=== PATIENT | female | born 1950 | race Caucasian/White ===

== ENCOUNTER 2023-10-27 01:30 | Inpatient (IN) | payer OTHER, SELFPAY ==
[2023-10-26 20:15] VITALS: BP 136/90
[2023-10-26 20:32] LABS: % Basophils 0.5 % (0-2); % Eosinophils 2.4 % (0-6); % Immature Granulocytes 0.7 % (0-0.5); % Lymphocytes 9.9 % (20.5-51.1); % Monocytes 9.8 % (1.7-9.3); % Neutrophils 76.7 % (42.2-75.2); Absolute Basophils 0.1 10^3/uL (0-0.2); Absolute Eosinophils 0.4 10^3/uL (0-0.7); Absolute Immature Granulocytes 0.1 10^3/uL (0-0.05); Absolute Lymphocytes 1.6 10^3/uL (1.2-3.4); Absolute Monocytes 1.6 10^3/uL (0.1-0.6); Absolute Neutrophils 12.2 10^3/uL (1.4-6.5); Hematocrit 34.6 % (37.0-47.0); Hemoglobin 11.9 g/dL (12.0-16.0); Mean Corp Hgb Conc. 34.4 g/dL (33.0-37.0); Mean Corpuscular Hgb 30.3 pg (27.0-31.0); Mean Platelet Volume 9.9 fL (7.4-10.4); Nucleated Red Blood Cells % 0 %; Platelet Count 379 10^3/uL (130-400); Red Blood Cell Count 3.93 10^6/uL (4.20-5.40); Red Cell Dist. Width 14.6 % (11.5-14.5)
[2023-10-26 20:51] LABS: ALT (SGPT) 44 U/L (0-35); AST (SGOT) 37 U/L (14-36); Albumin 3.8 g/dl (3.5-5.0); Alkaline Phosphatase 69 U/L (38-126); Blood Urea Nitrogen 19 mg/dl (7-17); Calcium 9.4 mg/dl (8.4-10.2); Carbon Dioxide 19 mmol/L (22-30); Chloride 104 mmol/L (98-107); Glucose 243 mg/dl (70-99); Potassium 4.2 mmol/L (3.5-5.1); Sodium 135 mmol/L (135-145); Total Bilirubin 0.6 mg/dl (0.2-1.3); Total Protein 6.4 g/dl (6.3-8.2); eGFR > 60.00
[2023-10-26 21:25] VITALS: BP 151/62
[2023-10-26 21:53] LABS: COVID-19 Antigen Negative (Negative)
[2023-10-26 22:00] VITALS: BP 128/63
--- NOTE | 2023-10-26 22:26 | ED.GENMED ---
History of Present Illness
General
Chief Complaint: Cold/Flu/URI Symptoms
Source: patient and spouse
Exam Limitations: none
Time Seen by Provider: 10/26/23 21:27
Nursing documentation reviewed up to this point in time: agreed with
Travel History
Have you had any contact with someone who has COVID-19?: No
Do you have any symptoms of coronavirus? Fever > 100 degrees, chills, cough, shortness of breath, sore throat, loss of taste or smell, muscle aches, or headache?: No
History of Present Illness
History of Present Illness:
Patient with history of lymphoma, currently receiving treatment and [facility], presents ED secondary to chronic cough, which has worsened recently, along with diarrhea over the past 1 week. Today, patient had fever over
the 101, for which she has taken Tylenol, on approxi-1 hour prior to arrival. In addition, patient reports 'not feeling well'. Denies nausea or vomiting. Denies loss of appetite. Denies abdominal pain. Patient's grandchildren recently had viral
illness. Denies headache. Denies dizziness. Denies rash.
Past History
Past History
ED Past Medical History: Cancer (Non-Hodgkin's lymphoma 15 years ago), HTN, Hypercholesterolemia, IDDM and Other (COVID-02 June 2021)
ED Past Surgical History: Gynecological, Orthopedic and Other (Splenectomy)
Social History
Tobacco: Non-smoker
Alcohol: None
Drug: None
Personal:
Living: with family
Employment: Retired
Family History
Family History: CAD
Review of Systems
Review of Systems
Allergies reviewed?: Yes
All Other Systems: ROS reviewed and negative except as documented in HPI and ROS
Constitutional: Denies fever, fatigue or chills
EENT: Reports no symptoms
Respiratory: Reports cough
Cardiac: Reports no symptoms
ABD/GI: Reports diarrhea; Denies abdominal pain, nausea or vomiting
Musculoskeletal: Reports no symptoms
Skin: Reports no symptoms
Neurological: Reports no symptoms
Phy Exam
Physical Exam
Physical Exam:
Physical Exam
General: mild distress, not acutely ill. afebrile
Head: nc/at. eomi
Neck: supple. no meningeal signs
Heart: s1/s2 regular rate and rhythm, no murmur. equal radial pulses.
Lungs: no acute respiratory distress. clear bilaterally
Abdomen: normal bowel sounds. not tender.
Neuro: alert and oriented. no focal neurological deficits
Skin: no rash
Psychiatric: well kept. interactive and cooperative
Extremities: no edema. no calf tenderness.
Course
Orders/Labs/Results
Orders:
Orders
10/26/23 20:25
B-Hydroxybutyrate Urgent
Comment: ADD ON
CMP [Comprehensive Metabolic Panel] Urgent
Complete Blood Count/With Diff Urgent
10/26/23 21:29
CR Chest - 2 Views Urgent
Comment:
Reason For Exam: fever/cough
10/26/23 21:34
COVID-19 Antigen Urgent
Source: Nasal Swab
Influenza A+B Rapid Molecular Urgent
MARCELINA Source: Nasal Swab
Specimen Description:
10/26/23 22:11
Add On- LAB Urgent
Tests Added?: Beta-hydroxybutyrate
10/26/23 22:24
0.9% Sodium Chloride 500 ml [Nss] 500 ml IV BOLUS
10/26/23 22:27
Stool Culture Urgent
MARCELINA Source: Feces/Stool
Specimen Description:
Date Specimen was Collected: 10/27/23
Time Specimen was Collected: 10:04
10/26/23 22:29
CT Chest W/o Iv Contrast Urgent
Comment:
Reason For Exam: cough/hypoxia
10/26/23 22:30
Venous Blood Gas Urgent
%Oxygen/Room Air: 95
10/26/23 22:56
Lactic Acid Q4H
Comment: CANCEL 2nd LACTIC ACID IF 1st LACTIC ACID IS LESS THAN 2
Urinalysis Reflex To Culture Urgent
Date Specimen was Collected: 10/26/23
Time Specimen was Collected: 22:54
Urine Microscopic Reflex Cult Urgent
Blood Culture Q30M
MARCELINA Source: Blood/Venous
Specimen Description:
Blood Culture Q30M
MARCELINA Source: Blood/Venous
Specimen Description:
Urine Culture Urgent
MARCELINA Source: U
Specimen Description:
Date Specimen was Collected: 10/26/23
Time Specimen was Collected: 22:54
10/27/23 00:17
Piperacillin/Tazo 3.375 Gram [Zosyn] 3.375 gram in 50 ml IV NOW
Vancomycin 1 Gram/200 ml [Vancocin] 1 gram in 200 ml IV NOW
10/27/23 01:07
Admit/Transfer Patient As Directed
Co-Sign Provider:
Level of Care: Inpatient admission
Assign to:: Medical/Surgical
Physician / Group: Sven Mccoy rudy
Diagnosis: aspiration pneumonia, hypoxia
Reason for Hospitalization: aspiration pneumonia, hypoxia - IVF and IV abx, speech eval
Expected length of stay greater than two midnights?: Yes
ELOS- Estimated Length of Stay in days: 3
I certify the patient meets the requirements for IP care: Yes
10/27/23 01:11
Code Status As Directed
Resuscitation Status: Full Code
10/27/23 02:23
0.9% Sodium Chloride 1000 ml [Nss] 1,000 ml IV 80 mls/hr
Acetaminophen [Tylenol] 650 mg PO Q4HPRN PRN
Bisacodyl [Dulcolax] 10 mg RECTAL Q75GSHP PRN
Dextrose 50%-Water [Dextrose 50% Syringe] 12.5 grams IV [id number] PRN
Docusate W/Senna [Senokot-S] 1 tablet PO BIDPRN PRN
Glucagon [GlucaGen] 1 mg IM PRN PRN
Ipratropium/Albuterol Sulfate [Duoneb] 3 ml INH R Q4HPRN PRN
Ondansetron Injectable [Zofran] 4 mg IV Q6HPRN PRN
Polyethylene Glycol Powder [Miralax] 17 grams PO DAILYPRN PRN
10/27/23 02:23
Respiratory Culture/Gram Stain Routine
MARCELINA Source: Sputum
Specimen Description:
Activity As Directed
Activity Level: As Tolerated
Bedside Glucose Monitoring As Directed
Frequency: AC&HS
Additional Instructions:: Change to q6h if pt on TPN, tube feeding or not eating
Vital Signs As Directed
Frequency: Per unit guidelines
Acapella [Rx Pep / Acapela] [RESP] Routine
Rx Incentive Spirometry [RESP] Routine
Frequency: q1h while awake
Ot Eval And Treat Routine
Pt Eval And Treat Routine
Activity Level: As Tolerated
Speech Therapy Eval & Treat Routine
DX Deep Vein Thrombosis Video Routine
10/27/23 03:00
Insulin Glargine Lantus [Lantus] 40 units Subcutaneous Insulin Syringe [Syringe-Insulin] 0 unit SC ONCE
10/27/23 05:58
Complete Blood Count/With Diff IN AM
Comprehensive Metabolic Panel IN AM
Glycohemoglobin (HgbA1c) IN AM
10/27/23 Breakfast
1800 calorie (15 carb) Diabetic
At Your Request: Limited Participation
Piperacillin/Tazo 3.375 Gram [Zosyn] 3.375 gram in 50 ml IV Q6H
10/27/23 07:30
Insulin Aspart Corrective Low [Novolog Flexpen-Low Resistance] See Protocol SC AC
Insulin Aspart Pen [Novolog Flexpen] 10 units SC AC
10/27/23 08:00
Guaifenesin [Mucinex] 1,200 mg PO Q12
Lisinopril [Zestril] 10 mg PO DAILY
Polymyxin B/Trimethoprim [Polytrim Ophthalmic Solution] See Dose Instructions OPHTH QID
10/27/23 18:00
Enoxaparin Sodium [Lovenox] 40 mg SC QPM
Abnormal Lab Results
10/26/23 10/26/23 10/26/23
20:25 22:30 22:56
WBC 16.0 H 10^3/uL
(4.8-10.8)
RBC 3.93 L 10^6/uL
(4.20-5.40)
Hgb 11.9 L g/dL
(12.0-16.0)
Hct 34.6 L %
(37.0-47.0)
RDW 14.6 H %
(11.5-14.5)
Abs Immat Gran (auto) 0.1 H 10^3/uL
(0-0.05)
Absolute Neuts (auto) 12.2 H 10^3/uL
(1.4-6.5)
Absolute Monos (auto) 1.6 H 10^3/uL
(0.1-0.6)
Immature Gran % 0.7 H %
(0-0.5)
Neutrophils % 76.7 H %
(42.2-75.2)
Lymphocytes % 9.9 L %
(20.5-51.1)
Monocytes % 9.8 H %
(1.7-9.3)
VBG pCO2 34 L mmHg
(35-48)
VBG pO2 105 H mmHg
(30-50)
Carbon Dioxide 19 L mmol/L
(22-30)
BUN 19 H mg/dl
(7-17)
Glucose 243 H mg/dl
(70-99)
AST 37 H U/L
(14-36)
ALT 44 H U/L
(0-35)
Leukocyte Esterase Rfl 1+ A
(Negative)
Urine Bacteria (Reflex) Few A
(Negative)
10/26/23 20:25
10/26/23 20:25
Vital Signs
Initial and Last Documented VS:
Initial Vital Signs
Temp Pulse Resp BP Pulse Ox
99 F 104 26 136/90 97
10/26/23 20:15 10/26/23 20:15 10/26/23 20:15 10/26/23 20:15 10/26/23 20:15
Last Documented Vital Signs
Temp Pulse Resp BP Pulse Ox
98.3 F 86 17 123/58 94
10/27/23 07:00 10/27/23 07:38 10/27/23 07:00 10/27/23 07:38 10/27/23 09:37
MDM/Problems Addressed
MDM/Problems Addressed:
CXR : no acute findings. However, secondary to hypoxia (90% on RA) along with worsening cough/fever, decision made to CT chest to evaluate for an occult pneumonia.
CT chest report reviewed - likely infection under aspiration. In light of patient's immunocompromised state along with sig. leukocytosis and mild hypoxia, will admit for further evaluation and treatment, including iv abx and IVF.
Blood cx pending.
*Critical Care Note
Total Time (30-74mins, 75-104mins- exclusive of procedures): Not Applicable
ED Attending Note
-
Portions of this chart may have been created with voice recognition software.� Occasional wrong word or��sound alike� substitutions may have occurred due to the inherent limitations of voice recognition software.
Discharge Plan
Departure
Patient Disposition: Admit
Date of Disposition: 10/27/23
Time of Disposition: 00:17
Admit to: Telemetry
Presentation/result/management discussed w/ accepting MD/DO: Hospitalist
Discharge Problem:
Aspiration pneumonia
Interventions
Interventions:
*Risk Screen - Suicide Last Done: 10/26/23 20:15
*General Assessment Last Done: 10/26/23 21:36
*Neglect/Abuse Screening Last Done: 10/26/23 20:15
ED- Fall Risk Assessment Last Done: 10/26/23 21:36
*ED COVID-19 Vaccine History Last Done: 10/27/23 01:46
*Nursing Disposition Last Done: 10/27/23 02:07
ED- Pulmonary Assessment Last Done: 10/26/23 21:36
Discharge Date and Time
Discharge Date/Time: 10/27/23 02:08
[2023-10-26 22:50] LABS: B-Hydroxybutyrate 0.08 mmol/L (0.02-0.27)
[2023-10-26] MEDS: NSS 500 IV (22:51)
[2023-10-26 23:00] VITALS: BP 126/59
[2023-10-26 23:07] LABS: Urine Albumin Negative (Neg - Trace); Urine Bilirubin Negative (Negative); Urine Character Clear (Clear); Urine Color Yellow; Urine Glucose Negative (Negative); Urine Ketone Negative (Negative); Urine Leukocyte 1+ (Negative); Urine Nitrite Negative (Negative); Urine Occult Blood Negative (Negative); Urine Urobilinogen 1+ (Neg - 1+)
[2023-10-26 23:18] LABS: Venous Blood Gas B.E. -1.8 mmol/L (-4 to +4); Venous Blood Gas HCO3 22.1 mmol/L (22-27); Venous Blood Gas O2 Sat % 98.4 %; Venous Blood Gas pCO2 34 mmHg (35-48); Venous Blood Gas pH 7.42 (7.32-7.43); Venous Blood Gas pO2 105 mmHg (30-50)
[2023-10-26 23:20] LABS: Urine Bacteria Few (Negative); Urine Red Blood Cell 0-2 /HPF (0-2)
[2023-10-27] VITALS (7 sets, daily range): BP systolic 110–128; BP diastolic 47–63; O2SAT 99; BMI 31.2
[2023-10-27] MEDS: ZOSYN 50 IV ×2 (00:22→05:20)
--- NOTE | 2023-10-27 00:43 | HPS.HSE ---
Family Physician
-
Family Physician: Warner Oliveros
Chief Complaint
-
acute on chronic cough, weakness, fever
History of Present Illness
73 y/o F hx of Lymphoma on Rituxan, splenectomy, GERD, IDDM, HTN presents to ER with acute on chronic cough. Patient reports chronic cough due to post-nasal drip. She reports in past 1 week, there is a productive cough with yellow-green sputum. She
also feels short of breath. Denies CP. She does note a fever today of 101. Last week, she had a viral GI bug which has mostly resolved. No acute GI complaints at this time.
She also complains of R eye redness and reports prior history of R eye infections treated with antibiotic eye drops.
In ER, CT imaging reveals pneumonia and patient is hypoxia, placed on 2L And admitted.
Medical History
Past Medical History
Past Medical History: Reports Other (hx of Lymphoma on Rituxan, splenectomy, GERD, IDDM, HTN )
Past Surgical History: Reports Orthopedic and Other (spleen removal)
Social History
Tobacco: Non-smoker
Alcohol: None
Drug: None
Personal:
Living: With Family
Employment: Retired
Family History
Family History: Not pertinent
Allergies / Home Medications
Allergies reflects when Allergies were last updated in [facility].
Home Medications with original date entered in [facility]
Allergy/Medication List:
Allergies
Allergy/AdvReac Type Severity Reaction Status Date / Time
ciprofloxacin [From Cipro] Allergy Rash Verified 10/26/23 20:19
ciprofloxacin HCl Allergy Rash Verified 10/26/23 20:19
[From Cipro]
Home Medications
cholecalciferol (vitamin D3) 50 mcg (2,000 unit) tablet 2,000 units PO DAILY Supplement 06/25/21
insulin aspart U-100 100 unit/mL (3 mL) subcutaneous pen (Novolog FlexPen U-100 Insulin aspart) 14 units SC AC Diabetes 06/25/21
insulin degludec 200 unit/mL (3 mL) subcutaneous pen (Tresiba FlexTouch U-200 insulin) 68 unit SQ HS Diabetes 06/25/21
lisinopril 10 mg tablet 10 mg PO DAILY Heart disease/condition 06/25/21
simvastatin 20 mg tablet 10 mg PO QPM High cholesterol 06/25/21
cyclobenzaprine 10 mg tablet 10 mg PO TIDPRN PRN muscle spasm #20 tabs 05/24/22
diclofenac sodium 75 mg tablet,delayed release 75 mg PO BID PRN pain #30 tabs 05/24/22
ondansetron 4 mg disintegrating tablet 4 mg PO QID PRN nausea and vomiting #20 tabs 05/24/22
prednisone 20 mg tablet 40 mg (2 x 20 mg) PO DAILY #8 tabs 10/15/22
Not verified at this time
Review of Systems
-
A 12 point ROS was completed and negative except as noted: Yes
Physical Exam
Vital Signs
Vital Signs
Temp Pulse Resp BP Pulse Ox
99 F 87 17 124/49 97
10/26/23 20:15 10/27/23 00:30 10/27/23 00:30 10/27/23 00:00 10/27/23 00:30
Physical Exam
General: No Apparent Distress
HEENT: NormoCephalic, Anicteric and Other (R eye redness, tearing)
Respiratory: Rhonchi
Cardiac: S1/S2 and Regular Rhythm
GI: No Non Distended
Neuro: AO x 3
Hematologic/Lymphatic: No Lymphadenopathy
Psych: Calm
Laboratory Results
-
10/26/23 20:25
10/26/23 20:25
Laboratory Results
Lactic Acid 1.0 mmol/L (0.7-2.0) 10/26/23 22:56
Total Bilirubin 0.6 mg/dl (0.2-1.3) 10/26/23 20:25
AST 37 U/L (14-36) H 10/26/23 20:25
ALT 44 U/L (0-35) H 10/26/23 20:25
Alkaline Phosphatase 69 U/L (38-126) 10/26/23 20:25
Data Reviewed
-
Diagnostic Radiology: Report Reviewed by me
Lab Data: Labs Reviewed by me
Impression/Plan
-
Assessment:
Acute hypoxic respiratory insufficiency
Suspected aspiration PNA
- CT: with RML and LLL nodularity concerning for pneumonia (aspiration) per night radiologist read. f/u formal report
- wean O2 as able
- start empiric Vanco/Zosyn and follow cultures
- mucolytics, supportive care, IS/Acapella, prn nebs etc
- speech eval
- immunocompromised patient in setting of lymphoma and therapy
R eye infection
- start Bacitracin/polymyxin eye drops
IDDM
- check A1c
- SSI
- diabetic diet
- continue Tresiba and Novolog - reduce doses of 40u and 10u respectively until med list clarified
Essential HTN
- continue MAMIE
Non-hodgkin lymphoma on Rituxan
- followed by [facility] (Dr. Inocente Tee)
DVT ppx: Lovenox
Code: Full
[2023-10-27] MEDS: VANCOCIN 200 IV ×2 (01:08→03:43)
--- NOTE | 2023-10-27 02:41 | VATNOTE ---
Paged by PCN, patient just arrived to floor and may have a vanco infiltrate. Patient with mild pain, redness, and swelling (less then 1 inch) to right AC. IV discontinued, warm compress applied and new IV started in left arm. PCN at bedside.
[2023-10-27] MEDS: NSS 1000 IV (02:50)
[2023-10-27 03:04] LABS: Glucose - Point of Care 222 mg/dl (70-99)
--- NOTE | 2023-10-27 03:13 | W.PN.UPDATE ---
Update Note
Progress Note Update
0300 pt ordered 40unit lantus. Pt refuses 40 units--only wants 30units. Told nurse ' she'll drop to low.' BG 222/
[2023-10-27] MEDS: ROBITUSSIN 200 MG PO (03:43)
--- NOTE | 2023-10-27 05:13 | PTCARENOTE ---
pt is aaox3, on 2L o2=97%. pt has a harsh, dry cough. pt TvabNnprh=410; pt was ordered 40 units. attempted to give w/ snack- however pt refused saying she wants 30 units and a snack because she doesn't want to drop'. informed COMMUNITY AIDE Ani Ge- who
provided new order. attempted to give pt her lantus 30units w/ snack however she refused stating its too late now.
pt arrived to floor w/ red, itchy, race edema to INT that had infiltrated - warm compress applied and new site obtain by VAT.
pt had red, crusty, trace edema to right eye - warm compress applied. pt has ordered eye drops.
pt is oriented to room w/ call paredes in reach
[2023-10-27 06:13] LABS: % Basophils 0.6 % (0-2); % Eosinophils 3.5 % (0-6); % Immature Granulocytes 0.9 % (0-0.5); % Lymphocytes 10.1 % (20.5-51.1); % Monocytes 12.7 % (1.7-9.3); % Neutrophils 72.2 % (42.2-75.2); Absolute Basophils 0.1 10^3/uL (0-0.2); Absolute Eosinophils 0.5 10^3/uL (0-0.7); Absolute Immature Granulocytes 0.1 10^3/uL (0-0.05); Absolute Lymphocytes 1.4 10^3/uL (1.2-3.4); Absolute Monocytes 1.8 10^3/uL (0.1-0.6); Hematocrit 31.3 % (37.0-47.0); Hemoglobin 10.7 g/dL (12.0-16.0); Mean Corp Hgb Conc. 34.2 g/dL (33.0-37.0); Mean Corpuscular Hgb 29.8 pg (27.0-31.0); Mean Corpuscular Volume 87.2 fL (81.0-99.0); Nucleated Red Blood Cells % 0 %; Platelet Count 338 10^3/uL (130-400); Red Blood Cell Count 3.59 10^6/uL (4.20-5.40); Red Cell Dist. Width 14.6 % (11.5-14.5); White Blood Cell Count 13.9 10^3/uL (4.8-10.8)
[2023-10-27 06:39] LABS: ALT (SGPT) 39 U/L (0-35); AST (SGOT) 26 U/L (14-36); Alkaline Phosphatase 68 U/L (38-126); Blood Urea Nitrogen 15 mg/dl (7-17); Calcium 8.8 mg/dl (8.4-10.2); Carbon Dioxide 20 mmol/L (22-30); Chloride 108 mmol/L (98-107); Estimated Creatinine Clearance 75 ml/min; Glucose 243 mg/dl (70-99); Potassium 4.1 mmol/L (3.5-5.1); Sodium 137 mmol/L (135-145); Total Bilirubin 0.7 mg/dl (0.2-1.3); Total Protein 5.4 g/dl (6.3-8.2); eGFR > 60.00
[2023-10-27 07:28] LABS: Glucose - Point of Care 231 mg/dl (70-99)
[2023-10-27] MEDS: NOVOLOG FLEXPEN 10 UNITS SC ×3 (07:37→17:05)
[2023-10-27] MEDS: NOVOLOG FLEXPEN-LOW RESISTANCE 2 UNITS SC (07:38)
[2023-10-27] MEDS: ZESTRIL 10 MG PO (07:38)
[2023-10-27] MEDS: MUCINEX 1200 MG PO ×2 (07:39→19:45)
[2023-10-27] MEDS: POLYTRIM OPHTHALMIC SOLUTION 1 DROP OPHTH ×4 (07:39→21:56)
--- NOTE | 2023-10-27 07:59 | PHA.VAN.IN ---
Assessment
- Assessment
Renal Function: Appears similar to baseline
Concomitant Antimicrobials: piperacillin/tazobactam
AUC Dosing Plan
- Dosing Variables
Dosing Weight (kg): 82
Dosing CrCl (ml/min): 75
Vd coefficient (L/kg): 0.7
- Empiric Dosing
Initial / Loading Dose: 2000mg - 14 (1g 01:08 PLUS 1g 03:43)
Maintenance Regimen: Vanc 750mg Q12H starting at 1800
Estimated AUC (mcg*h/mL): 405
Estimated Peak (mcg*h/mL): 23.7
Estimated Trough (mcg/ml): 11.4
Estimated Half Life (H): 10.4
- Monitoring
No levels ordered at this time: consider levels in next few days
MRSA Screen: Ordered per protocol
Pharmacokinetics Vancomycin I
- -
Patient Age: 73
Patient Sex: Female
Vancomycin Day #: 1
Indication: Pulmonary/Respiratory
Requesting Provider: Dr. Mccoy
Pertinent Antimicrobial Allergies:
ciprofloxacin - rash
Height / Weight:
Height 5 ft 4 in
Actual Weight 82.327 kg
Pertinent Past Medical History: BMI ~31
- Vital Signs / Lab Results
Temp Pulse Resp BP Pulse Ox
98.3 F 86 17 123/58 94
10/27/23 07:00 10/27/23 07:38 10/27/23 07:00 10/27/23 07:38 10/27/23 07:00
Lab Results - Hematology
10/26/23 10/27/23
20:25 05:58
WBC 16.0 H 13.9 H
Lab Results - Chemistry
10/26/23 10/27/23
20:25 05:58
BUN 19 H 15
Creatinine 0.8 0.7
Estimated Creat Clear 75
Albumin 3.8 3.0 L
10/26/23
22:56
Lactic Acid 1.0
Lab Results - Urine
10/26/23
22:56
Urine Nitrite (Reflex) Negative
Leukocyte Esterase Rfl 1+ A
Urine WBC (Reflex) 6-10
Ur Squamous Epith Cells 6-10
Urine Bacteria (Reflex) Few A
Microbiology Results
10/26/23 21:34 Influenza Types A & B (JONATAN) - Final
Nasal Swab Negative for Influenza A & B, NAAT
Negative results must be combined with clinical observations
and patient history.
Nucleic Acid Amplification test (NAAT)performed on the
[employer] platform.
--- NOTE | 2023-10-27 08:52 | PTOTSP ---
Dysphagia Evaluation
Oral and pharyngeal stages of swallowing suspected to be WFL. No signs of aspiration observed. Patient c/o new onset of reflux.
Recommend:
1. Regular, Thin Liquids
2. General aspiration and reflux precautions
3. Medications as best tolerated
4. Consider GI consult for report of reflux
No further dysphagia therapy warranted. Please reconsult as appropriate.
[2023-10-27 09:22] LABS: Glycohemoglobin (HgbA1c) 9.1 % (4.0-5.6)
[2023-10-27] MEDS: TESSALON PERLES 200 MG PO ×3 (10:17→19:45)
[2023-10-27] MEDS: TYLENOL 650 MG PO ×2 (10:17→21:59)
--- NOTE | 2023-10-27 10:29 | W.PN.HOSP.TC ---
Addendum entered and electronically signed by Sara Love MD 10/27/23 10:51:
briefly discussed abx plan with ID recommend Cef/Azithro
updated patient
Original Note:
Today's Communication/Plan
-
F/U cultures
Vanc/Zosyn/Azithro for now given hx immunosuppresion
stop vanc if MRSA swab negative
Assessment / Plan
Assessment / Plan
CT CHEST
IMPRESSION:
1. Airspace consolidation within the left lower lobe, likely representing pneumonia, subsegmental atelectasis, and/or aspiration. Cluster of centrilobular nodules within the right middle lobe, also likely infectious or inflammatory.
2. Moderate hiatal hernia without evidence of incarceration.
3. Diffusely mottled appearance of the thoracic spine and sternum, unchanged compared to prior CT dated 06/25/2021. Finding is nonspecific, and may be related to osteopenia or infiltrative process such as myeloma.
Acute hypoxic respiratory insufficiency
- CT results above - LLL PNA
- immunocompromised patient in setting of lymphoma and therapy; hx splenectomy
-speech eval appreciated - regular diet
- start empiric Vanco/Zosyn and follow cultures (dc Vanc if MRSA swab negative)
-add on atypical coverage with Azithromycin
-[place] Ag
- mucolytics, supportive care, IS/Acapella, prn nebs etc
- speech eval
R eye infection
- start Bacitracin/polymyxin eye drops
IDDM
- check A1c
- SSI
- diabetic diet
- continue Tresiba and Novolog - reduce doses
Essential HTN
- continue MAMIE
Non-hodgkin lymphoma on Rituxan
- followed by [facility] (Dr. Inocente Tee)
DVT ppx: Lovenox
Code: Full
Anticipated Discharge: 24 - 48 hours
Subjective/Interval History
-
Date of Service: October 27, 2023
Objective Data
-
Labs:
Laboratory Results
10/27/23
05:58
WBC 13.9 H
Hgb 10.7 L
Hct 31.3 L
Plt Count 338
Sodium 137
Potassium 4.1
Chloride 108 H
Carbon Dioxide 20 L
BUN 15
Creatinine 0.7
Glucose 243 H
Calcium 8.8
Total Bilirubin 0.7
AST 26
ALT 39 H
Alkaline Phosphatase 68
Vital Signs:
Vital Signs
Temp Pulse Resp BP Pulse Ox
98.3 F 86 17 123/58 94
10/27/23 07:00 10/27/23 07:38 10/27/23 07:00 10/27/23 07:38 10/27/23 09:37
I&O
10/26/23 10/27/23 10/28/23
06:59 06:59 06:59
Intake Total 700 / 700
Balance 700 / 700
[2023-10-27 11:40] LABS: Glucose - Point of Care 229 mg/dl (70-99)
[2023-10-27] MEDS: NOVOLOG FLEXPEN-LOW RESISTANCE 12 UNITS SC (12:00)
[2023-10-27] MEDS: ROCEPHIN 2000 MG IV (12:01)
[2023-10-27] MEDS: STERILE WATER FOR INJECTION 20 ML IV (12:01)
[2023-10-27] MEDS: ZITHROMAX 500 MG PO (12:01)
[2023-10-27 16:30] LABS: Glucose - Point of Care 192 mg/dl (70-99)
[2023-10-27] MEDS: NOVOLOG FLEXPEN-LOW RESISTANCE 1 UNITS SC (17:05)
[2023-10-27] MEDS: LOVENOX 40 MG SC (17:06)
[2023-10-27 21:33] LABS: Glucose - Point of Care 209 mg/dl (70-99)
[2023-10-27] MEDS: LANTUS 0.299999999999999989 UNITS SC (21:55)
--- NOTE | 2023-10-28 03:12 | DOWNTIME ---
There was a [employer] Downtime on 10/27/2023 from 0100 to 10/28/2023 at 0300. Downtime documentation of patient's care, including medication administrations, has been reconciled in the electronic record per guidelines. Refer to the
patient's paper chart under the miscellaneous tab to see printed paper medication records and downtime forms.
[2023-10-28 06:52] LABS: % Basophils 0.8 % (0-2); % Eosinophils 6.6 % (0-6); % Immature Granulocytes 0.8 % (0-0.5); % Lymphocytes 14.7 % (20.5-51.1); % Monocytes 12.7 % (1.7-9.3); % Neutrophils 64.4 % (42.2-75.2); Absolute Basophils 0.1 10^3/uL (0-0.2); Absolute Eosinophils 0.7 10^3/uL (0-0.7); Absolute Immature Granulocytes 0.1 10^3/uL (0-0.05); Absolute Lymphocytes 1.6 10^3/uL (1.2-3.4); Absolute Monocytes 1.4 10^3/uL (0.1-0.6); Absolute Neutrophils 6.8 10^3/uL (1.4-6.5); Hematocrit 34.1 % (37.0-47.0); Hemoglobin 11.5 g/dL (12.0-16.0); Mean Corp Hgb Conc. 33.7 g/dL (33.0-37.0); Mean Corpuscular Hgb 30.1 pg (27.0-31.0); Mean Corpuscular Volume 89.3 fL (81.0-99.0); Mean Platelet Volume 10.3 fL (7.4-10.4); Nucleated Red Blood Cells % 0 %; Platelet Count 383 10^3/uL (130-400); Red Blood Cell Count 3.82 10^6/uL (4.20-5.40); Red Cell Dist. Width 14.6 % (11.5-14.5); White Blood Cell Count 10.6 10^3/uL (4.8-10.8)
[2023-10-28 07:00] VITALS: BP 141/66
[2023-10-28 07:17] LABS: Glucose - Point of Care 202 mg/dl (70-99)
[2023-10-28 07:32] LABS: Blood Urea Nitrogen 15 mg/dl (7-17); Calcium 9.4 mg/dl (8.4-10.2); Carbon Dioxide 23 mmol/L (22-30); Chloride 108 mmol/L (98-107); Estimated Creatinine Clearance 66 ml/min; Glucose 186 mg/dl (70-99); Magnesium 1.8 mg/dl (1.6-2.3); Potassium 4.4 mmol/L (3.5-5.1); Sodium 138 mmol/L (135-145); eGFR > 60.00
[2023-10-28] MEDS: NOVOLOG FLEXPEN 10 UNITS SC (08:21)
[2023-10-28] MEDS: NOVOLOG FLEXPEN-LOW RESISTANCE 2 UNITS SC (08:22)
[2023-10-28] MEDS: ZESTRIL 10 MG PO (08:24)
[2023-10-28] MEDS: ZITHROMAX 500 MG PO (08:24)
[2023-10-28] MEDS: POLYTRIM OPHTHALMIC SOLUTION 2 DROP OPHTH ×2 (08:24→12:13)
[2023-10-28] MEDS: MUCINEX 1200 MG PO (08:24)
[2023-10-28 11:00] VITALS: BP 116/58
--- NOTE | 2023-10-28 11:21 | W.PN.HOSP.TC ---
Addendum entered and electronically signed by Sara Love MD 10/29/23 14:14:
sepsis 2/2 pneumonia
-resolved
Original Note:
Today's Communication/Plan
-
Ok for DC home today
Assessment / Plan
Assessment / Plan
CT CHEST
IMPRESSION:
1. Airspace consolidation within the left lower lobe, likely representing pneumonia, subsegmental atelectasis, and/or aspiration. Cluster of centrilobular nodules within the right middle lobe, also likely infectious or inflammatory.
2. Moderate hiatal hernia without evidence of incarceration.
3. Diffusely mottled appearance of the thoracic spine and sternum, unchanged compared to prior CT dated 06/25/2021. Finding is nonspecific, and may be related to osteopenia or infiltrative process such as myeloma.
Acute hypoxic respiratory insufficiency
- CT results above - LLL PNA
- immunocompromised patient in setting of lymphoma and therapy; hx splenectomy
-speech eval appreciated - regular diet
-abx narrowed to cef/azithro on 10/26. Leukocytosis resolved, patient feeling better. Will DC to complete 3 days Azithro; 7 days Cephalosporin course
-patient feels ready for DC home today
R eye infection
- start Bacitracin/polymyxin eye drops
IDDM
- check A1c
- SSI
- diabetic diet
- continue Tresiba and Novolog - reduce doses
Essential HTN
- continue MAMIE
Non-hodgkin lymphoma on Rituxan
- followed by [facility] (Dr. Inocente Tee)
DVT ppx: Lovenox
Code: Full
Anticipated Discharge: Today
Subjective/Interval History
-
Date of Service: October 28, 2023
feeling much better today and wants to go home
no chest pain or shortness of breath
no nausea/vomiting
Objective Data
-
Labs:
Laboratory Results
10/28/23
06:29
WBC 10.6
Hgb 11.5 L
Hct 34.1 L
Plt Count 383
Sodium 138
Potassium 4.4
Chloride 108 H
Carbon Dioxide 23
BUN 15
Creatinine 0.8
Glucose 186 H
Calcium 9.4
Vital Signs:
Vital Signs
Temp Pulse Resp BP Pulse Ox
98.3 F 93 18 141/66 92
10/28/23 07:00 10/28/23 07:00 10/28/23 07:00 10/28/23 07:00 10/28/23 07:30
I&O
10/27/23 10/28/23 10/29/23
06:59 06:59 06:59
Intake Total 700 / 700 1680 / 1680
Balance 700 / 700 1680 / 1680
Review of Systems
-
History Source: Patient
All other systems: Reviewed and negative
Physical Exam
-
General: No Apparent Distress
HEENT: PERRLA
Respiratory: Clear to Auscultation; Negative Wheezes
Cardiac: Regular Rhythm and S1/S2
GI: Soft and Nontender
Musculoskeletal: No Edema
Skin: Warm and Dry; Negative Rash
Neuro: AO x 3
Psych: Calm
Data Reviewed
-
Diagnostic Radiology: Report Reviewed by me
Labs: Labs Reviewed by me
[2023-10-28] MEDS: ROCEPHIN 2000 MG IV (11:24)
[2023-10-28] MEDS: STERILE WATER FOR INJECTION 20 ML IV (11:24)
[2023-10-28] MEDS: NOVOLOG FLEXPEN 14 UNITS SC (11:31)
[2023-10-28] MEDS: NOVOLOG FLEXPEN-LOW RESISTANCE 3 UNITS SC (11:31)
--- NOTE | 2023-10-28 11:31 | W.DS.TRANS ---
DC Summary - Transitions Rn Care Coordinator
-
Discharge Instructions:
Discharge Diagnosis/Procedures community acquired pneumonia
Diet Regular
Activity As tolerated
Driving Restrictions As prior to admission
Bathing Restrictions None
Instructions:
Stand-Alone Forms:
Changes to Home Medications: Yes
Discharge Medications:
DC Medications w/original date entered in [facility]
cholecalciferol (vitamin D3) 50 mcg (2,000 unit) tablet 2,000 units PO HS Supplement 06/25/21
insulin aspart U-100 100 unit/mL (3 mL) subcutaneous pen (Novolog FlexPen U-100 Insulin aspart) 14 units SC AC Diabetes 06/25/21
insulin glargine 100 unit/mL subcutaneous cartridge 40 unit SC QPM Diabetes 10/27/23
lisinopril 5 mg tablet 5 mg PO DAILY Blood Pressure 10/27/23
azithromycin 500 mg tablet 500 mg PO DAILY 1 day #1 tab 10/28/23
cefdinir 300 mg capsule 300 mg PO Q12H #10 caps 10/28/23
guaifenesin 600 mg tablet, extended release 12 hr 600 mg PO Q12 #30 tabs 10/28/23
polymyxin B sulfate 10,000 unit-trimethoprim 1 mg/mL eye drops 1 drp ophthalmic (eye) QID #10 mL 10/28/23
Home Medication Changes
addition of polymyxin eye drops
5 more Days Cefdinir
1 more Day Azithromycin
Mucinex
Pending Results: No
[2023-10-28 11:35] LABS: Glucose - Point of Care 262 mg/dl (70-99)
--- NOTE | 2023-10-28 13:24 | W.DCSUMMARY ---
Discharge Summary
Discharge Data
Date of Admission: 10/27/23
Date of Discharge: 10/28/23
-
Pending Results: No
Hospital Course
Discharging Physician : Dr. Sara Love
Disposition : Home
Primary care physician : Dr. Warner Oliveros
Principal Discharge diagnosis : community acquired pneumonia
Hospital Course :
Ms. Ashok Andersen is a 73 yo woman with hx Lymphoma on Rituxan, Splenectomy, GERD, IDDM, HTN who presents to the ER with acute on chronic cough, fatigue and fever to 101 at home. Triage vitals with T 99, P 104, RR 26, SpO2 97%, BP 136/90,
Labs with WBC 16, glucose 243. CXR without acute process; chest CT with e/o pneumonia. Patient was admitted to medicine. Initially started on broad spectrum antibiotics and weaned to Cef/Azitho on hospital day 1. Patient's leukocytosis resolved,
she has remained afebrile and feels ready for discharge. She is discharged with one more day of Azithromycin 500mg to complete 3 day course; and 5 more days Cefdinir BID to complete 7 day course. She will follow up closely with outpatient
providers.
Patient's HgA1c is 9.1. Patient states she has been adjusting her insulin with PCP at home and will have close follow up.
Time spent on discharge was on 35 minutes.
Important imaging findings :
CXR 10/27
IMPRESSION:
No acute cardiopulmonary process.
CHEST CT
IMPRESSION:
1. Airspace consolidation within the left lower lobe, likely representing pneumonia, subsegmental atelectasis, and/or aspiration. Cluster of centrilobular nodules within the right middle lobe, also likely infectious or inflammatory.
2. Moderate hiatal hernia without evidence of incarceration.
3. Diffusely mottled appearance of the thoracic spine and sternum, unchanged compared to prior CT dated 06/25/2021. Finding is nonspecific, and may be related to osteopenia or infiltrative process such as myeloma.
Procedure findings :
Discharge Plan
-
Patient Disposition: Home (Routine Discharge)
Discharge Diagnosis/Procedures: community acquired pneumonia
Diet: Regular
Activity: As tolerated
Driving Restrictions: As prior to admission
Bathing Restrictions: None
Referrals:
Warner Oliveros MD [Family Provider] - in less than 1 week
Prescriptions:
New
polymyxin B sulf-trimethoprim 10,000 unit- 1 mg/mL Drops
1 drp ophthalmic (eye) QID Qty: 10 0RF
Rx Instructions:
Continue for 5 more days (through 11/02/23)
guaifenesin 600 mg Tablet Extended Release 12hr
600 mg PO Q12 Qty: 30 0RF
cefdinir 300 mg capsule
300 mg PO Q12H Qty: 10 0RF
Rx Instructions:
start morning of 10/29/23
azithromycin 500 mg tablet
500 mg PO DAILY 1 Days Qty: 1 0RF
Rx Instructions:
Take 1 tablet morning of 10/28
Continued
insulin aspart U-100 [Novolog FlexPen U-100 Insulin] 300 UNITS/3 ML insulin pen
14 units SC AC
cholecalciferol (vitamin D3) 2,000 UNITS tablet
2,000 units PO HS
insulin glargine 100 unit/mL Cartridge
40 unit SC QPM
lisinopril 5 mg tablet
5 mg PO DAILY
Patient Comments:
pt stated her lisinopril was 10mg daily for years. recently reduced to 5mg
Discharge Orders:
Discharge Patient (As Directed); Ordered 10/28/23
Ordered By: Sara Love
Discharge Date and Time
Discharge Date/Time: 10/28/23 13:18
Print Language: POLISH
--- NOTE | 2023-10-29 09:18 | PN.CDI ---
CDI
- -
CDI:
Physician Documentation Request
Admit Date: 10/27/23 01:30
Dear Doctor Ivan,
Patient admitted with LLL pneumonia.
10/25 wbc 16.0
Patient has remained afebrile during hospitalization however H&P states ' She does note a fever today of 101'
Heart rate on presentation 92-104
respiratory rate on presentation 22-26
Please clarify which of the following most accurately describes the status of the patient's infection:
Sepsis
- Systemic manifestations of infection, with 2 or more SIRS criteria which include:
- Fever >100.4 degrees F or hypothermia < 96.8 degrees F
- Leukocytosis - WBC > 12,000 or leukopenia - WBC < 4,000 or > 10% bands
- Tachycardia > 90 beats per minute
- Tachypnea - RR > 20 breaths per minute or PaCO2 , 32mmHg
Source: Merck Manual 2013
Localized Infection Only, Without Systemic Illness
- indicate the site/source, such as UTI, pneumonia etc.
Other
Use of terms such as suspected, likely, concern for, or probable (associated with a specific diagnosis that is being evaluated, monitored, or treated as if it exists) are acceptable and can be coded in the inpatient setting, when documented at the
time of discharge.
Thank you,
Claudette Gibson RN, BSN
CDI Specialist
tiger text
Please use your independent medical judgment in providing your response.
== END 2023-10-28 13:18 | disposition home or self-care (01) | DRG 871 ==
LOC: 3 WEST ACU 01:30
PROVIDERS: Emergency Medicine; ADMITTING PHYSICIAN Internal Medicine; ATTENDING PHYSICIAN Student in an Organized Health Care Education/Training Program; EMERGENCY PHYSICIAN Emergency Medicine; FAMILY PHYSICIAN Family Medicine
DX: A41.9 Sepsis, unspecified organism (principal); J69.0 Pneumonitis due to inhalation of food and vomit; D84.9 Immunodeficiency, unspecified; C85.90 Non-Hodgkin lymphoma, unspecified, unspecified site; Z11.52 Encounter for screening for COVID-19; R09.02 Hypoxemia; R06.89 Other abnormalities of breathing; Z79.4 Long term (current) use of insulin; E11.9 Type 2 diabetes mellitus without complications; I10 Essential (primary) hypertension
CPT/HCPCS: 71046; 71250; 80048; 80053; 81003; 81015; 82010; 82805; 82962; 83036; 83605; 83735; 85025; 87040; 87045; 87046; 87086; 87205; 87427; 87449; 87502; 87641; 87811; 92610; 96361; 96365; 97161; 97165; 99285

== ENCOUNTER 2024-05-09 18:58 | Inpatient (IN) | payer OTHER, SELFPAY ==
[2024-05-09] VITALS (10 sets, daily range): BP systolic 93–154; BP diastolic 34–124; BMI 25.1; BMI 29.9
--- NOTE | 2024-05-09 13:12 | ED.GENMED ---
ED Provider Triage
<Aura Lowe, DIRECTOR OF DIGITAL TECHNOLOGY - Last Filed: 05/09/24 13:47>
-
Patient seen by provider in Triage?: Seen in Triage
Attestation: A medical screening examination has been initiated by a qualified medical provider. Based on the assessment performed at this time, it has been determined that an emergent medical condition may exist and the patient has been informed
that further medical evaluation and possible additional diagnostic testing may be needed.
HPI: 73 yo female hx lymphoma, sudden onset shaking in her car, lay down temp 102.1, took Tylenol 1000 mg 1 hour ago. Denies CP, SOB, belly pain. Denies m/v/d/c.
Takes Jaypirca 200 mg daily. Followed by Cale Tee.
GENERAL: Alert , in no apparent distress
EYE: No visual abnormalities.
ENT: No visible abnormalities.
LUNGS: No acute respiratory distress
NEUROLOGICAL: Alert and oriented
SKIN: Skin intact. No visible changes.
MUSCULOSKELETAL: Moving extremities normally
PSYCH: Normal and appropriate interaction.
This is a medical evaluation conducted in person to initiate diagnostic evaluation and provide initial therapeutics. Please see further documentation by the treating clinician.
History of Present Illness
<Aura Lowe, DIRECTOR OF DIGITAL TECHNOLOGY - Last Filed: 05/09/24 13:47>
General
Chief Complaint: Fever
Time Seen by Provider: 05/09/24 13:12
<Bebo Sprague DO - Last Filed: 05/09/24 19:56>
General
Source: patient and family
History of Present Illness
History of Present Illness:
This is a 73-year-old female with history of lymphoma as well as splenectomy who presents after she developed chills earlier today. The patient's states that she went over to visit her daughter and came home and had chills lay down. They
noticed a fever. Again the patient is had a splenectomy due to lymphoma. She is treated for lymphoma. Patient denies cough. Had a little bit of nasal congestion recently. No urinary symptoms. No abdominal pain. No back pain. No rash
Past History
<Aura Lowe, DIRECTOR OF DIGITAL TECHNOLOGY - Last Filed: 05/09/24 13:47>
Past History
ED Past Medical History: Cancer (Non-Hodgkin's lymphoma 15 years ago), HTN, Hypercholesterolemia, IDDM and Other (COVID-02 June 2021)
ED Past Surgical History: Gynecological, Orthopedic and Other (Splenectomy)
Social History
Tobacco: Non-smoker
Alcohol: None
Drug: None
Personal:
Living: with family
Employment: Retired
Family History
Family History: CAD
Phy Exam
<Bebo Sprague, DO - Last Filed: 05/09/24 19:56>
Physical Exam
Physical Exam:
CONSTITUTIONAL Patient alert and oriented to person, place and time. ill-appearing. Vital signs reviewed. Febrile
HEAD atraumatic, normocephalic.
EYES eyelids normal to inspection, Extraocular muscles intact, Conjunctiva normal, Sclera normal.
NECK normal range of motion, Trachea midline, no jugular venous distention.
RESPIRATORY CHEST No respiratory distress noted, Chest expansion equal, Bilateral breath sounds clear.
CARDIOVASCULAR regular rate and rhythm, Heart sounds normal.
ABDOMEN abdomen nontender, Bowel sounds normal. No distention.
BACK normal inspection, no obvious deformities
UPPER EXTREMITY range of motion normal, Motor strength normal, no cyanosis, no edema.
LOWER EXTREMITY range of motion normal, Motor strength normal, no cyanosis, no edema.
NEURO Speech normal, No focal motor deficits, [place] coma scale 15, Memory normal, Cranial Nerves intact to screening exam.
SKIN skin warm, dry, and normal in color.
Sepsis
<Bebo Sprague, DO - Last Filed: 05/09/24 19:56>
Sepsis Screening
Sepsis Assessment: Sepsis Ruled Out
Sepsis Screen
Sepsis Screen: Sepsis Ruled Out
Date: 05/09/24
Time: 19:56
Course
<Aura Lowe, DIRECTOR OF DIGITAL TECHNOLOGY - Last Filed: 05/09/24 13:47>
Orders/Labs/Results
Orders:
Orders
05/09/24 13:25
CBC/With Diff [Complete Blood Count/With Diff] Stat
Comprehensive Metabolic Panel Urgent
Blood Culture Urgent
MARCELINA Source: Blood/Venous
Specimen Description:
05/09/24 13:33
Urinalysis Reflex To Culture Urgent
Date Specimen was Collected: 05/09/24
Time Specimen was Collected: 13:30
Urine Microscopic Reflex Cult Urgent
Urine Culture Urgent
MARCELINA Source: U
Specimen Description:
Date Specimen was Collected: 05/09/24
Time Specimen was Collected: 13:30
05/09/24 14:24
COVID-19 Antigen Urgent
Source: Nasal Swab
Influenza A+B Rapid Molecular Urgent
AMRCELINA Source: Nasal Swab
Specimen Description:
05/09/24 14:35
Cefepime HCl [Maxipime] 2,000 mg IV NOW STA
CR Chest - 2 Views Urgent
Comment:
Reason For Exam: fever
05/09/24 14:36
Ibuprofen [Motrin] 600 mg PO NOW STA
05/09/24 14:38
Vancomycin [Vancocin] 2,000 mg 0.9% Sodium Chloride 500 ml [Nss] 500 ml IV NOW
05/09/24 14:44
Lactic Acid Q4H
Comment: CANCEL 2nd LACTIC ACID IF 1st LACTIC ACID IS LESS THAN 2
Blood Culture Q30M
MARCELINA Source: Blood/Venous
Specimen Description:
Blood Culture Q30M
MARCELINA Source: Blood/Venous
Specimen Description:
05/09/24 15:41
0.9% Sodium Chloride 1000 ml [Nss] 1,000 ml IV BOLUS
05/09/24 15:43
0.9% Sodium Chloride 1000 ml [Nss] 1,000 ml IV BOLUS
05/09/24 17:35
Electrocardiogram (*1) Urgent
Reason for Study: Palpitations
EKG- Treatment ONCE
05/09/24 17:44
Acetaminophen [Tylenol] 1,000 mg PO NOW STA
05/09/24 18:39
Admit/Transfer Patient As Directed
Co-Sign Provider:
Level of Care: Inpatient admission
Assign to:: Telemetry
Physician / Group: trenton gomez
Diagnosis: sepsis immunocompromised poss PNA
Reason for Telemetry: Arrhythmia
Date to Stop Telemetry: 05/12/24
Time to Stop Telemetry: 11:00
Reason for Hospitalization: sepsis immunocompromised poss PNA
Expected length of stay greater than two midnights?: Yes
ELOS- Estimated Length of Stay in days: 3
I certify the patient meets the requirements for IP care: Yes
Code Status As Directed
Resuscitation Status: Full Code
05/09/24 18:44
PRN Pain Medication Management As Directed
May give lesser potent ordered pain med per pt: Yes
preference::
Protocol:: Medication orders for pain may be administered in a
manner that supports deferring to patient preference
when the pt is:
- Requesting an ordered lesser potent pain medication.
Least to most potent pain medications are defined
as: acetaminophen < NSAID < tramadol < opioids
(morphine, oxycodone, hydromorphone).
- Requesting a lesser dose of the same medication IF
ORDERED.
- Requesting a less intrusive route of administration
if both routes are prescribed by the provider (PO <
IV).
05/12/24 11:00
DC Protocol for Telemetry ONCE
Abnormal Lab Results
05/09/24 05/09/24
13:25 13:33
WBC 10.9 H 10^3/uL
(4.8-10.8)
RBC 4.01 L 10^6/uL
(4.20-5.40)
MCH 31.2 H pg
(27.0-31.0)
RDW 15.7 H %
(11.5-14.5)
MPV 10.9 H fL
(7.4-10.4)
Abs Immat Gran (auto) 0.1 H 10^3/uL
(0-0.05)
Absolute Neuts (auto) 10.1 H 10^3/uL
(1.4-6.5)
Absolute Lymphs (auto) 0.5 L 10^3/uL
(1.2-3.4)
Neutrophils % 92.5 H %
(42.2-75.2)
Lymphocytes % 4.9 L %
(20.5-51.1)
Monocytes % 1.1 L %
(1.7-9.3)
AST 66 H U/L
(14-36)
ALT 64 H U/L
(0-35)
Leukocyte Esterase Rfl Trace A
(Negative)
Urine Bacteria (Reflex) Many A
(Negative)
05/09/24 13:25
05/09/24 13:25
Vital Signs
Initial and Last Documented VS:
Initial Vital Signs
Temp Pulse Resp BP Pulse Ox
101.5 F H 95 16 132/62 97
05/09/24 13:06 05/09/24 13:06 05/09/24 13:06 05/09/24 13:06 05/09/24 13:06
Last Documented Vital Signs
Temp Pulse Resp BP Pulse Ox
100 F 100 15 101/51 93
05/09/24 19:00 05/09/24 19:45 05/09/24 19:45 05/09/24 19:05 05/09/24 19:30
<Bebo Sprague, DO - Last Filed: 05/09/24 19:56>
Orders/Labs/Results
Orders:
Orders
05/09/24 13:25
CBC/With Diff [Complete Blood Count/With Diff] Stat
Comprehensive Metabolic Panel Urgent
Blood Culture Urgent
MARCELINA Source: Blood/Venous
Specimen Description:
05/09/24 13:33
Urinalysis Reflex To Culture Urgent
Date Specimen was Collected: 05/09/24
Time Specimen was Collected: 13:30
Urine Microscopic Reflex Cult Urgent
Urine Culture Urgent
MARCELINA Source: U
Specimen Description:
Date Specimen was Collected: 05/09/24
Time Specimen was Collected: 13:30
05/09/24 14:24
COVID-19 Antigen Urgent
Source: Nasal Swab
Influenza A+B Rapid Molecular Urgent
MARCELINA Source: Nasal Swab
Specimen Description:
05/09/24 14:35
Cefepime HCl [Maxipime] 2,000 mg IV NOW STA
CR Chest - 2 Views Urgent
Comment:
Reason For Exam: fever
05/09/24 14:36
Ibuprofen [Motrin] 600 mg PO NOW STA
05/09/24 14:38
Vancomycin [Vancocin] 2,000 mg 0.9% Sodium Chloride 500 ml [Nss] 500 ml IV NOW
05/09/24 14:44
Lactic Acid Q4H
Comment: CANCEL 2nd LACTIC ACID IF 1st LACTIC ACID IS LESS THAN 2
Blood Culture Q30M
MARCELINA Source: Blood/Venous
Specimen Description:
Blood Culture Q30M
MARCELINA Source: Blood/Venous
Specimen Description:
05/09/24 15:41
0.9% Sodium Chloride 1000 ml [Nss] 1,000 ml IV BOLUS
05/09/24 15:43
0.9% Sodium Chloride 1000 ml [Nss] 1,000 ml IV BOLUS
05/09/24 17:35
Electrocardiogram (*1) Urgent
Reason for Study: Palpitations
EKG- Treatment ONCE
05/09/24 17:44
Acetaminophen [Tylenol] 1,000 mg PO NOW STA
05/09/24 18:39
Admit/Transfer Patient As Directed
Co-Sign Provider:
Level of Care: Inpatient admission
Assign to:: Telemetry
Physician / Group: trenton gomez
Diagnosis: sepsis immunocompromised poss PNA
Reason for Telemetry: Arrhythmia
Date to Stop Telemetry: 05/12/24
Time to Stop Telemetry: 11:00
Reason for Hospitalization: sepsis immunocompromised poss PNA
Expected length of stay greater than two midnights?: Yes
ELOS- Estimated Length of Stay in days: 3
I certify the patient meets the requirements for IP care: Yes
Code Status As Directed
Resuscitation Status: Full Code
05/09/24 18:44
PRN Pain Medication Management As Directed
May give lesser potent ordered pain med per pt: Yes
preference::
Protocol:: Medication orders for pain may be administered in a
manner that supports deferring to patient preference
when the pt is:
- Requesting an ordered lesser potent pain medication.
Least to most potent pain medications are defined
as: acetaminophen < NSAID < tramadol < opioids
(morphine, oxycodone, hydromorphone).
- Requesting a lesser dose of the same medication IF
ORDERED.
- Requesting a less intrusive route of administration
if both routes are prescribed by the provider (PO <
IV).
05/12/24 11:00
DC Protocol for Telemetry ONCE
Abnormal Lab Results
05/09/24 05/09/24
13:25 13:33
WBC 10.9 H 10^3/uL
(4.8-10.8)
RBC 4.01 L 10^6/uL
(4.20-5.40)
MCH 31.2 H pg
(27.0-31.0)
RDW 15.7 H %
(11.5-14.5)
MPV 10.9 H fL
(7.4-10.4)
Abs Immat Gran (auto) 0.1 H 10^3/uL
(0-0.05)
Absolute Neuts (auto) 10.1 H 10^3/uL
(1.4-6.5)
Absolute Lymphs (auto) 0.5 L 10^3/uL
(1.2-3.4)
Neutrophils % 92.5 H %
(42.2-75.2)
Lymphocytes % 4.9 L %
(20.5-51.1)
Monocytes % 1.1 L %
(1.7-9.3)
AST 66 H U/L
(14-36)
ALT 64 H U/L
(0-35)
Leukocyte Esterase Rfl Trace A
(Negative)
Urine Bacteria (Reflex) Many A
(Negative)
05/09/24 13:25
05/09/24 13:25
Vital Signs
Initial and Last Documented VS:
Initial Vital Signs
Temp Pulse Resp BP Pulse Ox
101.5 F H 95 16 132/62 97
05/09/24 13:06 05/09/24 13:06 05/09/24 13:06 05/09/24 13:06 05/09/24 13:06
Last Documented Vital Signs
Temp Pulse Resp BP Pulse Ox
100 F 100 15 101/51 93
05/09/24 19:00 05/09/24 19:45 05/09/24 19:45 05/09/24 19:05 05/09/24 19:30
<Bebo Sprague DO - Last Filed: 05/09/24 19:56>
MDM/Problems Addressed
MDM/Problems Addressed:
Fever, history of lymphoma, history of splenectomy
<Bebo Sprague DO - Last Filed: 05/09/24 19:56>
*Radiology
Radiology exam reviewed: radiology read reviewed
*Pulse Oximetry
Patient hypoxic: no
*EKG
Interpreted by ED Provider?: Yes
Interpretation: abnormal
Rate: tachycardiac
Rhythm: sinus
Equality: normal axis
Ischemia: non-specific ST changes
*It [employer] Interpretation
Rate: normal
Interpretation: normal
Rhythm: sinus
*Critical Care Note
Total Time (30-74mins, 75-104mins- exclusive of procedures): Not Applicable
Data Reviewed
Review of Other/Old Records Reveals: Labs and Discharge Summary (Discharge summary reviewed from October 2023)
Source: patient and family
Further Testing Considered But Not Given:
Consider chest CT has prior chest CT revealed pneumonia but hold off for now
<Bebo Sprague DO - Last Filed: 05/09/24 19:56>
Patient Management
Discussion with other providers: Hospitalist
Escalation/DeEscalation of care consider admission/obs:
73-year-old female with history of splenectomy with fever up to 104. Chest x-ray suggest possible early pneumonia. Treat with broad-spectrum antibiotics and admit.
ED Attending Note
<Aura Lowe DIRECTOR OF DIGITAL TECHNOLOGY - Last Filed: 05/09/24 13:47>
-
Portions of this chart may have been created with voice recognition software.� Occasional wrong word or��sound alike� substitutions may have occurred due to the inherent limitations of voice recognition software.
Discharge Plan
Departure
Patient Disposition: Admit
Date of Disposition: 05/09/24
Time of Disposition: 15:48
Admit to: Telemetry
Presentation/result/management discussed w/ accepting MD/DO: Hospitalist
Discharge Problem:
Sepsis, Lymphoma, H/O splenectomy, Possible pneumonia
Interventions
Interventions:
*Risk Screen - Suicide Last Done: 05/09/24 13:08
*General Assessment Last Done: 05/09/24 14:00
*Neglect/Abuse Screening Last Done: 05/09/24 13:08
ED- Fall Risk Assessment Last Done: 05/09/24 14:00
*ED COVID-19 Vaccine History Last Done: 05/09/24 13:08
*Nursing Disposition Last Done: 05/09/24 19:51
ED- Neurological Assessment Last Done: 05/09/24 14:00
ED-Skin Assessment Last Done: 05/09/24 14:00
Discharge Date and Time
Discharge Date/Time: 05/09/24 19:52
[2024-05-09 13:45] LABS: Urine Albumin Negative (Neg - Trace); Urine Bilirubin Negative (Negative); Urine Character Clear (Clear); Urine Color Yellow; Urine Glucose Negative (Negative); Urine Ketone Negative (Negative); Urine Leukocyte Trace (Negative); Urine Nitrite Negative (Negative); Urine Occult Blood Negative (Negative); Urine Urobilinogen Negative (Neg - 1+)
[2024-05-09 13:45] LABS: % Basophils 0.4 % (0-2); % Eosinophils 0.6 % (0-6); % Immature Granulocytes 0.5 % (0-0.5); % Lymphocytes 4.9 % (20.5-51.1); % Monocytes 1.1 % (1.7-9.3); % Neutrophils 92.5 % (42.2-75.2); Absolute Eosinophils 0.1 10^3/uL (0-0.7); Absolute Immature Granulocytes 0.1 10^3/uL (0-0.05); Absolute Lymphocytes 0.5 10^3/uL (1.2-3.4); Absolute Monocytes 0.1 10^3/uL (0.1-0.6); Absolute Neutrophils 10.1 10^3/uL (1.4-6.5); Hematocrit 37.9 % (37.0-47.0); Hemoglobin 12.5 g/dL (12.0-16.0); Mean Corpuscular Hgb 31.2 pg (27.0-31.0); Mean Corpuscular Volume 94.5 fL (81.0-99.0); Mean Platelet Volume 10.9 fL (7.4-10.4); Nucleated Red Blood Cells % 0 %; Platelet Count 274 10^3/uL (130-400); Red Blood Cell Count 4.01 10^6/uL (4.20-5.40); Red Cell Dist. Width 15.7 % (11.5-14.5); White Blood Cell Count 10.9 10^3/uL (4.8-10.8)
[2024-05-09 14:17] LABS: ALT (SGPT) 64 U/L (0-35); AST (SGOT) 66 U/L (14-36); Albumin 4.3 g/dl (3.5-5.0); Alkaline Phosphatase 89 U/L (38-126); Blood Urea Nitrogen 14 mg/dl (7-17); Calcium 9.7 mg/dl (8.4-10.2); Carbon Dioxide 23 mmol/L (22-30); Chloride 103 mmol/L (98-107); Estimated Creatinine Clearance 57 ml/min; Glucose 93 mg/dl (70-99); Sodium 139 mmol/L (135-145); Total Bilirubin 0.4 mg/dl (0.2-1.3); Total Protein 6.5 g/dl (6.3-8.2); eGFR > 60.00
[2024-05-09 14:43] LABS: Urine Amorphous Seen; Urine Mucus Moderate
[2024-05-09 14:44] LABS: Urine Bacteria Many (Negative); Urine Red Blood Cell 0-2 /HPF (0-2); Urine White Cell 0-2 /HPF (0-5)
[2024-05-09] MEDS: MAXIPIME 2000 MG IV (14:45)
[2024-05-09] MEDS: MOTRIN 600 MG PO (14:45)
[2024-05-09 14:47] LABS: COVID-19 Antigen Negative (Negative)
--- NOTE | 2024-05-09 14:48 | PHANOTE ---
med rec note-patient not answer question properly, not making sense. spouse in room not really helping, he does have patient chemo medication. patient ecw from 02/22/24 and pharmacy records used
[2024-05-09] MEDS: VANCOCIN 540 MG IV (14:55)
[2024-05-09 15:13] LABS: Lactic Acid 1.4 mmol/L (0.7-2.0)
[2024-05-09] MEDS: NSS 1000 IV ×2 (15:43→21:46)
--- NOTE | 2024-05-09 17:58 | HPS.HSE ---
Family Physician
<JESUS Steward - Last Filed: 05/09/24 18:56>
-
Family Physician: Warner Oliveros
Chief Complaint
<JESUS Steward - Last Filed: 05/09/24 18:56>
History of Present Illness
73-year-old female with sudden onset of shaking in her car she went at her daughters. She reports she drove 15 minutes home laid down and her temperature was noted to be 102.1 F. She took 1000 mg of Tylenol 1 hour prior to coming to the hospital
today. She denies headache, sore throat, chest pain, palpitations, shortness of breath, cough, abdominal pain, nausea, vomiting, diarrhea, urinary symptoms. She states she has had a chronic cough ongoing and ongoing nasal congestion she does not
use any nasal sprays or antihistamines. 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 She started seeing Dr. Beebe at [facility] for non-Hodgkin's lymphoma
in 2005, and 2021 she had abnormal blood work and she was placed on Rituxan until March 24 when they decided to try Japyria due to a clinical trial having good outcomes per patient. She has not had any reactions while on this medication and has
been tolerating it well.
She has past medical history non-Hodgkin lymphoma on Jaypirca, HTN, IDDM, GERD, splenectomy 2005, left lower lobe pneumonia October 2023
<Megan Rocha MD - Last Filed: 05/09/24 18:51>
-
.
Medical History
<JESUS Steward - Last Filed: 05/09/24 18:56>
Past Medical History
Past Medical History: Reports Other
Additional Past Medical History:
hx of Lymphoma on Jaypirca started March 24, 2024
splenectomy 2005 enlarged/Hx hemolytic anemia
GERD
IDDM
HTN
Left lower lobe pneumonia October 2023
Past Surgical History: Reports Orthopedic and Other (spleen removal)
Social History
Tobacco: Non-smoker
Alcohol: None
Drug: None
Personal:
Living: With Family
Employment: Retired
Family History
Family History: Not pertinent
Allergies / Home Medications
Allergies reflects when Allergies were last updated in [employer].
Home Medications with original date entered in [employer]
Allergy/Medication List:
Allergies
Allergy/AdvReac Type Severity Reaction Status Date / Time
ciprofloxacin [From Cipro] Allergy Rash Verified 10/26/23 20:19
ciprofloxacin HCl Allergy Rash Verified 10/26/23 20:19
[From Cipro]
Home Medications
insulin aspart U-100 100 unit/mL (3 mL) subcutaneous pen (Novolog FlexPen U-100 Insulin aspart) 10 units SC AC Diabetes 06/25/21
lisinopril 5 mg tablet 5 mg PO DAILY Blood Pressure 10/27/23
atorvastatin 10 mg tablet (Lipitor) 10 mg PO DAILY 05/09/24
famotidine 20 mg tablet (Pepcid) 20 mg PO BIDPRN PRN gerd 05/09/24
insulin glargine 100 unit/mL (3 mL) subcutaneous pen (Lantus Solostar U-100 Insulin) 35 unit SC QPM 05/09/24
pirtobrutinib 100 mg tablet (Jaypirca) 200 mg PO DAILY 05/09/24
Review of Systems
<JESUS Steward - Last Filed: 05/09/24 18:56>
-
History Source: Patient
A 12 point ROS was completed and negative except as noted: Yes
Constitutional: Reports Fever and Chills
EENT: Reports Other (Chronic nasal congestion); Denies Sore Throat or Mouth Pain
Respiratory: Reports Cough (Chronic); Denies Trouble Breathing
Cardiac: Denies Chest Pain, Diaphoresis, Palpitations or Syncope
Abdomen/GI: Denies Abdominal Pain, Nausea, Vomiting, Diarrhea, Constipated, Bloody Stools or Black Stools
: Denies Dysuria, Frequency, Flank Pain, Incontinence, Difficulty Voiding, Urgency, Bleeding or Dark Urine
Musculoskeletal: Denies Joint Pain, Muscle Pain or Edema
Skin: Denies Itching or Rash
Neurological: Denies Dizzy, Headache, Weakness or Numbness
Endocrine: Reports No Symptoms
Hematologic/Lymphatic: Reports No Symptoms
Psych: Reports Calm
Physical Exam
<JESUS Steward - Last Filed: 05/09/24 18:56>
Vital Signs
Vital Signs
Temp Pulse Resp BP Pulse Ox
102.8 F H 102 26 123/34 95
05/09/24 15:38 05/09/24 14:00 05/09/24 14:00 05/09/24 14:00 05/09/24 14:00
Physical Exam
General: Conversant and Fever; No Pain or Chills
HEENT: NormoCephalic, Anicteric, Moist mucous membranes, PERRLA, Mellen Conjunctivae, No Ptosis and Neck Nontender
Respiratory: Clear; No Wheezes, Rales or Rhonchi
Cardiac: S1/S2 and Regular Rhythm; No Murmur, Rub, Gallop or Peripheral Edema
Breast: Deferred by me
GI: Soft, Non Tender, Non Distended, Normal Bowel Sounds and Other (No hepatomegaly, history splenectomy)
Rectal: Deferred by Provider
Genito-urinary: Deferred by me
Musculoskeletal: No Clubbing, No Cyanosis and No Edema
Skin: Warm and Dry; No Rash or Jaundice
Neuro: AO x 3, No Motor Deficits, Nonfocal/grossly intact, Cranial Nerves Intact and No Sensory Deficits; No Slurred Speech, Facial Droop or Tremors
Psych: Calm
Laboratory Results
<JESUS Steward - Last Filed: 05/09/24 18:56>
-
05/09/24 13:25
05/09/24 13:25
Laboratory Results
Lactic Acid 1.4 mmol/L (0.7-2.0) 05/09/24 14:44
Total Bilirubin 0.4 mg/dl (0.2-1.3) 05/09/24 13:25
AST 66 U/L (14-36) H 05/09/24 13:25
ALT 64 U/L (0-35) H 05/09/24 13:25
Alkaline Phosphatase 89 U/L (38-126) 05/09/24 13:25
Data Reviewed
<JESUS Steward - Last Filed: 05/09/24 18:56>
-
Diagnostic Radiology: Report Reviewed by me
Lab Data: Labs Reviewed by me
Impression/Plan
<JESUS Steward - Last Filed: 05/09/24 18:56>
-
Impression/plan:
Admit to telemetry
#Sepsis immunocompromise patient history splenectomy, lymphoma possible PNA
#Hx pneumonia left lower lobe October 2023
Temp 102.8 F, HR 102, WBC 10.9 left shift
-Private room given immunocompromise patient
-COVID/FLU-negative
-UA many bacteria, trace leukocytes
-Follow urine culture, blood cultures x 2
-Consult pulmonary
-Consult infectious disease
-IV NSS 80 cc an hour
-IV vancomycin, IV Zosyn
-Follow CBC, CMP
CXR: Low lung volumes mild bibasilar opacities likely atelectasis with pneumonia not excluded
#Acute transaminitis likely reactive
AST 66, ALT 64, alk phos 89 will follow CMP
#Non-Hodgkin's lymphoma
-On Jaypirca 200 mg in a.m.
#IDDM
Accu-Cheks with SSI, check HgbA1c was 9.14 Oct 2023
-Patient at home taking NovoLog FlexPen 4-10 units with meals, Lantus 35 units SQ every afternoon
-Will give Lantus 15 units subcu p.m., sliding scale low with meals
#HTN�benign
BP 123/34
-Continue lisinopril 5 mg daily with hold parameters
-May continue Lipitor 10 mg daily
GERD
Continue Pepcid 20 mg twice daily as needed
DVT prophylaxis
Subcu Lovenox
Full code
<Megan Rocha MD - Last Filed: 05/09/24 18:51>
-
Impression/plan:
Admit to telemetry
#Sepsis immunocompromise patient history splenectomy, lymphoma
#Hx pneumonia left lower lobe October 2023
Temp 102.8 F, HR 102, WBC 10.9 left shift
-COVID/FLU-negative
-Blood cultures x 2
-UA many bacteria, trace leukocytes
CXR: Low lung volumes mild bibasilar opacities likely atelectasis with pneumonia not excluded
#Acute transaminitis likely reactive
AST 66, ALT 64, alk phos 89 will follow
#Non-Hodgkin's lymphoma
-On Jaypirca 200 mg in a.m.
#IDDM
Accu-Cheks with SSI, check HgbA1c was 9.14 Oct 2023
-NovoLog FlexPen 10 units with meals, Lantus 35 units SQ every afternoon
#HTN�benign
BP 123/34
-Continue lisinopril 5 mg daily with hold parameters
-May continue Lipitor 10 mg daily
GERD
Continue Pepcid 20 mg twice daily as needed
DVT prophylaxis
Subcu Lovenox
Full code
I saw and examined the patient.
The [facility] or PA's note was reviewed and I agree with the note.
Comment:
73 female presented with sudden onset of fever/ rigors.
No cough, sob, GI or urinary problems
GEN: No acute distress, conversant, pleasant
HEENT: anicteric, extraocular movements intact, clear oropharynx without exudates
CV: normal S1/S2, no murmur, rub or gallop
RESP: clear to auscultation bilaterally
GI: soft, non-distended, not tender to palpation, normal active bowel sounds, no hepatosplenomegaly
EXT: warm, well perfused, no edema bilaterally
NEURO: AAOx3, non-focal
Psych: calm
#Sepsis immunocompromise patient history splenectomy, lymphoma
#Hx pneumonia left lower lobe October 2023
Temp 102.8 F, HR 102, WBC 10.9 left shift
-COVID/FLU-negative
-Blood cultures x 2
-UA many bacteria, trace leukocytes
CXR: Low lung volumes mild bibasilar opacities likely atelectasis with pneumonia not excluded
#Acute transaminitis likely reactive
AST 66, ALT 64, alk phos 89 will follow
#Non-Hodgkin's lymphoma
-On Jaypirca 200 mg in a.m.
#IDDM
Accu-Cheks with SSI, check HgbA1c was 9.14 Oct 2023
-NovoLog FlexPen 10 units with meals, Lantus 35 units SQ every afternoon
Total time spent to see the patient, examine the patient, review data and lab results, discuss treatment plan with patient, her , ER doctor, nursing staff around 75 minutes
[2024-05-09] MEDS: TYLENOL 1000 MG PO (18:45)
--- NOTE | 2024-05-09 20:37 | PHA.VAN.IN ---
Assessment
- Assessment
Renal Function: Appears elevated from baseline (10/28/23 BASELINE SCR: 0.8)
Concomitant Antimicrobials: CEFEPIME
- Previous Dosing Experience
Previous Regimen: 750MG IV Q12H - NO DOSES GIVEN
Date of Regimen: 10/27/23
Provided Trough of: UNKNOWN
Provided AUC of: UNKNOWN
Patient's SCR is: Elevated compared to previous dosing experience (10/27/23 SCR = 0.7)
Patient's weight is: Decreased compared to previous dosing experience (10/27/23 WT = 82.3 KG)
AUC Dosing Plan
- Dosing Variables
Dosing Weight (kg): 80.2
Dosing CrCl (ml/min): 59
Vd coefficient (L/kg): 0.7
- Empiric Dosing
Initial / Loading Dose: 2GM
Maintenance Regimen: 1500MG IV Q24H
Estimated AUC (mcg*h/mL): 521
Estimated Peak (mcg*h/mL): 37
Estimated Trough (mcg/ml): 11.1
Estimated Half Life (H): 13
Pharmacokinetics Vancomycin I
- -
Patient Age: 73
Patient Sex: Female
Vancomycin Day #: 1
Indication: Pulmonary/Respiratory (SEPSIS)
Requesting Provider: PAOLA
Height / Weight:
Height 5 ft 4.5 in
Actual Weight 80.24 kg
Pertinent Past Medical History: NON-HODGKINS LYMPHOMA
- Vital Signs / Lab Results
Temp Pulse Resp BP Pulse Ox
97.2 F 101 16 105/42 96
05/09/24 19:53 05/09/24 19:53 05/09/24 19:53 05/09/24 19:53 05/09/24 19:53
Lab Results - Hematology
05/09/24
13:25
WBC 10.9 H
Lab Results - Chemistry
05/09/24
13:25
BUN 14
Creatinine 0.9
Estimated Creat Clear 57
Albumin 4.3
05/09/24 05/09/24
14:44 18:45
Lactic Acid 1.4 Cancelled
Lab Results - Urine
05/09/24
13:33
Urine Nitrite (Reflex) Negative
Leukocyte Esterase Rfl Trace A
Urine WBC (Reflex) 0-2
Ur Squamous Epith Cells 6-10
Urine Bacteria (Reflex) Many A
Microbiology Results
05/09/24 14:44 Blood Culture - Preliminary
Blood/Venous Positive culture in progress
Gram Stain - Preliminary
05/09/24 13:25 Blood Culture - Preliminary
Blood/Venous Positive culture in progress
Gram Stain - Preliminary
05/09/24 14:24 Influenza Types A & B (JONATAN) - Final
Nasal Swab Negative for Influenza A & B, NAAT
Negative results must be combined with clinical observations
and patient history.
Nucleic Acid Amplification test (NAAT)performed on the
[employer] platform.
[2024-05-09] MEDS: MAXIPIME 1000 MG IV (22:16)
[2024-05-09] MEDS: STERILE WATER FOR INJECTION 10 ML IV (22:17)
[2024-05-09 22:31] LABS: Glucose - Point of Care 170 mg/dl (70-99)
[2024-05-09] MEDS: ProAmatine 5 MG PO (22:52)
[2024-05-09] MEDS: LANTUS 0.15 UNITS SC (22:53)
[2024-05-10] VITALS (63 sets, daily range): BP systolic 85–129; BP diastolic 34–82; BMI 29.5
--- NOTE | 2024-05-10 00:11 | W.PN.UPDATE ---
Update Note
Progress Note Update
Patient is hypotensive with SBP in low 90s, one time midodrine given and IVF increased. BP continue to drop down with SBP to mid 80s and map 59. Will start patient on Levophed and transfer to IMU for med administration per protocol.
--- NOTE | 2024-05-10 00:38 | TRANSFER ---
Pt admitted to [facility] from ED. Ambulated from stretcher without issues. Pt afebrile, VSS. R AC IV C/D/I. NSS infusing, increased to 100 mL/hr per [facility] order due to hypotension. Lungs clear, pt on room air. Pt with non productive, dry, occasional
cough. Pt with good urine output and reporting intermittent loose stools. Skin intact. Will transfer to IMU and start levophed due to continued hypotension post midodrine.
--- NOTE | 2024-05-10 01:31 | PTCARENOTE ---
Addendum entered by Breanna Hand RN 05/10/24 03:10:
Pt BP 97/44 MAP 58. VAT put new IV site right forearm. Levo started see AUG. IV fluids cont.
Original Note:
Patient transported to IMU in the bed, received report via phone by RN. Pt AAOx3 and pleasant. Pt normal sinus on tele. 95% on room air. Pt denies SOB. Most recent BP 104/60 MAP 73. Levophed not started at this time due to MAP <65. Pt up to the
bathroom with standby assistance, denies weakness, dizziness, or SOB. Pt oriented to the unit and has call paredes within reach.
[2024-05-10] MEDS: LEVOPHED 250 IV (02:56)
[2024-05-10] MEDS: VANCOCIN 530 MG IV (05:10)
[2024-05-10] MEDS: MAXIPIME 1000 MG IV (05:10)
[2024-05-10] MEDS: STERILE WATER FOR INJECTION 10 ML IV ×2 (05:10→14:08)
[2024-05-10 05:47] LABS: % Basophils 0.3 % (0-2); % Lymphocytes 2.7 % (20.5-51.1); % Monocytes 5.1 % (1.7-9.3); % Neutrophils 86.9 % (42.2-75.2); Absolute Basophils 0.1 10^3/uL (0-0.2); Absolute Immature Granulocytes 1.8 10^3/uL (0-0.05); Absolute Monocytes 1.9 10^3/uL (0.1-0.6); Hematocrit 32.1 % (37.0-47.0); Mean Corp Hgb Conc. 34.3 g/dL (33.0-37.0); Mean Corpuscular Hgb 31.1 pg (27.0-31.0); Mean Corpuscular Volume 90.7 fL (81.0-99.0); Mean Platelet Volume 11.6 fL (7.4-10.4); Nucleated Red Blood Cells % 0 %; Platelet Count 207 10^3/uL (130-400); Red Blood Cell Count 3.54 10^6/uL (4.20-5.40); Red Cell Dist. Width 15.3 % (11.5-14.5); White Blood Cell Count 36.8 10^3/uL (4.8-10.8)
[2024-05-10 06:10] LABS: ALT (SGPT) 46 U/L (0-35); AST (SGOT) 53 U/L (14-36); Albumin 3.2 g/dl (3.5-5.0); Alkaline Phosphatase 68 U/L (38-126); Blood Urea Nitrogen 19 mg/dl (7-17); Calcium 8.7 mg/dl (8.4-10.2); Carbon Dioxide 17 mmol/L (22-30); Chloride 109 mmol/L (98-107); Estimated Creatinine Clearance 53 ml/min; Glucose 206 mg/dl (70-99); Potassium 4.1 mmol/L (3.5-5.1); Sodium 139 mmol/L (135-145); Total Bilirubin 0.5 mg/dl (0.2-1.3); Total Protein 5.3 g/dl (6.3-8.2); eGFR 59.86
--- NOTE | 2024-05-10 06:48 | W.PN.HOSP.TC ---
Today's Communication/Plan
-
Repeat blood cultures
c/w IV Abx
Wean down Levophed if possible
Assessment / Plan
Assessment / Plan
Physical exam
GEN: No acute distress, conversant, pleasant
HEENT: anicteric, extraocular movements intact, clear oropharynx without exudates
CV: normal S1/S2, no murmur, rub or gallop
RESP: clear to auscultation bilaterally
GI: soft, non-distended, not tender to palpation, normal active bowel sounds, no hepatosplenomegaly
EXT: warm, well perfused, no edema bilaterally
NEURO: AAOx3, non-focal
Psych: calm
#Sepsis POA, Temp 102.8 F, HR 102, WBC 10.9 left shift
Septic shock , on Levophed gtt
Source possible PNA although no hypoxia or significant cough( has chronic cough)
She is immunocompromise patient with history splenectomy, lymphoma and on antineoplastic therapy
-Hx pneumonia left lower lobe October 2023
-COVID/FLU-negative
-Blood cultures x 2
-UA many bacteria, trace leukocytes
- Empiric IV Vancomycin & Cefepime
- f/w pulmonary and ID recommendations
# Bacteremia
Repeat blood cultures
#Acute transaminitis likely reactive
AST 66, ALT 64, alk phos 89
coming down
No abdominal pain or nausea
#Non-Hodgkin's lymphoma/ Small cell B-cell lymphoma
followed by [facility] (Dr. Inocente Tee)
-On Jaypirca 200 mg in a.m. holding for now
#IDDM
High BS
increase pre-meal and Lantus dose
Accu-Cheks with SSI, check HgbA1c was 9.14 Oct 2023, now 6.9
-Home regimen: NovoLog FlexPen 10 units with meals, Lantus 35 units SQ every afternoon
#Essential HTN
- Holding lisinopril due to low BP
# DVT ppx: Lovenox
Total time spent to see the patient, examine the patient, review data and lab results, discuss treatment plan with patient, her , ER doctor, nursing staff around 75 minutes
Anticipated Discharge: > 48 hours
Subjective/Interval History
-
Date of Service: May 10, 2024
She feels better
No cough, chest pain or abdominal pain
Objective Data
-
Labs:
Laboratory Results
05/10/24
05:13
WBC 36.8 H
Hgb 11.0 L
Hct 32.1 L
Plt Count 207 D
Sodium 139
Potassium 4.1
Chloride 109 H
Carbon Dioxide 17 L
BUN 19 H
Creatinine 1.0
Glucose 206 H
Calcium 8.7
Total Bilirubin 0.5
AST 53 H
ALT 46 H
Alkaline Phosphatase 68
Vital Signs:
Vital Signs
Temp Pulse Resp BP Pulse Ox
98.8 F 84 23 129/42 96
05/10/24 03:07 05/10/24 05:45 05/10/24 05:45 05/10/24 05:45 05/10/24 05:45
I&O
05/08/24 05/09/24 05/10/24
06:59 06:59 06:59
Intake Total 950 / 950
Output Total 1350 / 1350
Balance -400 / -400
[2024-05-10 07:41] LABS: Glucose - Point of Care 201 mg/dl (70-99)
--- NOTE | 2024-05-10 08:24 | PHA.VAN.FU ---
Vancomycin Assessment / Plan
- Assessment
Renal Function: Stable
WBC's are: Trending Up
Concomitant Antimicrobials: cefepime
- Dosing Plan
Continue: Vanc 1500mg Q24H
- Monitoring Plan
No level(s) ordered at this time: consider levels in next few days
- Follow Up
Pharmacy will continue to follow.
Vancomycin Follow UP
- -
Patient Age: 73
Patient Sex: Female
Vancomycin Day #: 2
Indication: Pulmonary/Respiratory
Requesting Provider: Ronan Leavitt
Pertinent Antimicrobial Allergies:
ciprofloxacin - rash
Height / Weight:
Height 5 ft 4.5 in
Actual Weight 79.2 kg
Pertinent Past Medical History: NHL, DM
- Vital Signs / Lab Results
Temp Pulse Resp BP Pulse Ox
98.8 F 86 18 124/49 94
05/10/24 03:07 05/10/24 07:45 05/10/24 07:45 05/10/24 07:45 05/10/24 07:45
Lab Results - Hematology
05/09/24 05/10/24
13:25 05:13
WBC 10.9 H 36.8 H
Lab Results - Chemistry
05/09/24 05/10/24
13:25 05:13
BUN 14 19 H
Creatinine 0.9 1.0
Estimated Creat Clear 57 53
Albumin 4.3 3.2 L
05/09/24 05/09/24
14:44 18:45
Lactic Acid 1.4 Cancelled
Lab Results - Urine
05/09/24
13:33
Urine Nitrite (Reflex) Negative
Leukocyte Esterase Rfl Trace A
Ur Squamous Epith Cells 6-10
Microbiology Results
05/09/24 14:44 Blood Culture - Preliminary
Blood/Venous Positive culture in progress
Gram Stain - Preliminary
05/09/24 13:25 Blood Culture - Preliminary
Blood/Venous Positive culture in progress
Gram Stain - Preliminary
05/09/24 14:24 Influenza Types A & B (JONATAN) - Final
Nasal Swab Negative for Influenza A & B, NAAT
Negative results must be combined with clinical observations
and patient history.
Nucleic Acid Amplification test (NAAT)performed on the
[employer] platform.
[2024-05-10] MEDS: NOVOLOG FLEXPEN-LOW RESISTANCE 2 UNITS SC ×2 (08:32→12:07)
[2024-05-10] MEDS: LIPITOR 10 MG PO (08:32)
[2024-05-10 09:11] LABS: Glycohemoglobin (HgbA1c) 6.9 % (4.0-5.6)
[2024-05-10] MEDS: NSS IV (09:13)
[2024-05-10] MEDS: NOVOLOG FLEXPEN-LOW RESISTANCE SC ×2 (09:14→16:41)
[2024-05-10] MEDS: NOVOLOG FLEXPEN 10 UNITS SC ×2 (09:14→12:06)
--- NOTE | 2024-05-10 10:30 | CON.PUL ---
Consultation
Consultation Request
Date/Time Consultation Requested: 05/10/2024
Date/Time Consultation Performed: 05/10/2024
Requesting Provider: Dr. Rocha
Performing Provider: Dr. Warren Rider
Reason for Consultation: Possible pneumonia/sepsis
Medical History
-
History of Present Illness:
74-year-old woman with past medical history significant for non-Hodgkin lymphoma on Jaypirca follows up at [facility], also history of type 2 diabetes, GERD, splenectomy in 2005, left lower lobe pneumonia in October 2023.
Came to the emergency room complaining of sudden onset shaking chills while in the car.
She noted a temperature of 102 �F at home. Patient denies any previous acute pulmonary symptoms. Denies nausea vomiting diarrhea. Denies urinary symptoms or abdominal or back pain.
Of note, patient has chronic cough and nasal congestion but has not been treated for this.
She was treated for pneumonia in October 2023.
Denies constitutional symptoms.
She was first diagnosed with non-Hodgkin lymphoma in 2005,
Patient developed hypotension, not responsive to IV fluid resuscitation and required low-dose Levophed.
We were consulted 05/09/2024 per
Past Medical History
Past Medical History: Other (See assessment and plan section)
Social History
Tobacco: Non-smoker
Alcohol: None
Drug: None
Personal:
Living: With Family
Employment: Retired
Family History
Family History: Reviewed & Not Pertinent
Allergies / Home Medications
Allergies
Allergy/AdvReac Type Severity Reaction Status Date / Time
ciprofloxacin [From Cipro] Allergy Rash Verified 10/26/23 20:19
ciprofloxacin HCl Allergy Rash Verified 10/26/23 20:19
[From Cipro]
Home Medications
�Medication �Instructions �Recorded �Confirmed �Last Taken �Type
insulin aspart U-100 100 unit/mL 10 units SC AC Diabetes 06/25/21 05/09/24 05/09/24 History
(3 mL) subcutaneous pen (Novolog
FlexPen U-100 Insulin aspart)
lisinopril 5 mg tablet 5 mg PO DAILY Blood Pressure 10/27/23 05/09/24 Unknown History
atorvastatin 10 mg tablet (Lipitor) 10 mg PO DAILY High Cholesterol 05/09/24 05/09/24 Unknown History
famotidine 20 mg tablet (Pepcid) 20 mg PO BIDPRN PRN gerd 05/09/24 05/09/24 Unknown History
insulin glargine 100 unit/mL (3 35 unit SC QPM Diabetes 05/09/24 05/09/24 Unknown History
mL) subcutaneous pen (Lantus
Solostar U-100 Insulin)
pirtobrutinib 100 mg tablet 200 mg PO DAILY Cancer 05/09/24 05/09/24 05/09/24 History
(Jaypirca)
Review of Systems
-
History Source: Patient
All other systems: Negative unless noted
Vitals / Labs / Diagnostic Testing
Vital Signs
Temp Pulse Resp BP Pulse Ox
98.9 F 90 22 98/55 95
05/10/24 07:43 05/10/24 09:00 05/10/24 09:00 05/10/24 09:00 05/10/24 09:00
Lab Data
05/10/24 05:13
05/10/24 05:13
Microbiology
05/09/24 14:44 Blood/Venous Blood Culture - Preliminary
Positive culture in progress
05/09/24 14:44 Blood/Venous Gram Stain - Preliminary
05/09/24 13:25 Blood/Venous Blood Culture - Preliminary
Positive culture in progress
05/09/24 13:25 Blood/Venous Gram Stain - Preliminary
05/09/24 14:24 Nasal Swab Influenza Types A & B (JONATAN) - Final
Negative for Influenza A & B, NAAT
Negative results must be combined with clinical observations
and patient history.
Nucleic Acid Amplification test (NAAT)performed on the
[employer] NOW platform.
Diagnostic Testing:
Physical Exam
-
HEENT: Normocephalic
Cardiovascular: S1/S2
Respiratory: Rales (Bibasilar) and Non-Labored Respirations
GI: Soft and Non Distended
Neurology: Awake, Alert, AO x 3 and No Motor Deficits
Skin: Warm and Other ( no rash)
General: Comfortable
Assessment
-
74-year-old woman with past medical history noted, admitted to the hospital after developing sudden onset chills. Patient does report history of chronic cough. No significant hemoptysis or phlegm production. Chest x-ray with minimal bibasilar
abnormalities. We were consulted for possibility of pneumonia.
Septic shock: Possible pulmonary source.
Community-acquired pneumonia suspect
Chest x-ray: Describes bibasilar mild infiltrates atelectasis versus pneumonia
Abnormal UA: Bacteria without WBCs
Bacteremia with gram-positive cocci
Negative COVID
Immunosuppression-history of non-Hodgkin lymphoma
Leukocytosis
Metabolic [id number] gap-possibly post IV fluid
Normal lactic acid
Normal renal function mild transaminitis
Hyperglycemia
Conditions present prior admission:
Non-Hodgkin lymphoma/small cell biliary cell lymphoma-followed at [facility]-followed by [facility] (Dr. Inocente Tee)
On Jaypirca since 2023
Occasional chronic diarrhea-unclear etiology
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
Hypertension
Type 2 diabetes
Assessment and plan:
Critically ill, requiring low-dose Levophed-septic shock on immunosuppressed on therapy for non-Hodgkin lymphoma, status postsplenectomy in the distant past.
Status post IV fluid resuscitation-no further aggressive IV fluid necessary at this point.
Lactic acid is normal
Renal function is normal
Wean down Levophed to target mean arterial blood pressure 65 mmHg. Currently at 2 mics per minute.
-
Source of infection to me is unclear- Likely pneumonia
Has bibasilar crackles on exam
Chest x-ray not that impressive-minimal bibasilar abnormalities atelectasis versus pneumonia
Based on CAT scan from October 2023 likely has left lower lobe scarring post pneumonia.
Follow fever curve.
Continue broad-spectrum antibiotic
Bacteremia noted gram-positive cocci-follow final identification.
Obtain a sputum culture-order
Obtain urine culture-order placed
Legionella urine antibody-order placed
Streptococcal urine antibody also will be obtained
May need to obtain CT of the chest to evaluate further parenchyma, hold for now.
Wait for infectious disease evaluation
-
Hold immunosuppression for now
-
Patient does have history of chronic coughing. May need outpatient evaluation in the future.
Treated for pneumonia October 2023, I reviewed that CT chest and she had at that time and left lower lobe infiltrate with possible postinflammatory scarring.
There was no follow-up chest x-ray after that CAT scan. She states that she underwent a PET/CT in between at [facility]. She was told she had a left lower lobe scarring
-
Glycemic control-continue subcu insulin
Target 140-180
-
Will continue to follow along with you.
-
Critical care statement: A total of 32 minutes of critical care time was provided for this patient today. This includes management of unstable vital signs, evaluation of the patient at bedside, reviewing the patient's pertinent medical records
including ventilator settings, arterial blood gases, radiographs, microbiology, laboratory evaluations and discussion with primary team, critical care nursing, and respiratory therapy.
[2024-05-10 11:56] LABS: Glucose - Point of Care 228 mg/dl (70-99)
--- NOTE | 2024-05-10 12:06 | CON.ID ---
Consultation
-
Date/Time Consultation Requested: May 09, 20242008
Date/Time Consultation Performed: May 10, 2024 1200
Requesting Provider: JESUS Steward
Performing Provider: Dr. Keisha Desai
Reason for Consultation: Immunocompromised, possible pneumonia
Chief Complaint / Past History
Chief Complaint
Rigors
History of Present Illness
73 year old female with DMhx splenectomy, NHL s/p rituxan 2021 to 03/24/2024, now on Jaypirca, who started feeling unwell yesterday. She then developed sudden onset of rigors. She was unable to keep warm. She came to the ED 05/09/24. T=101.5 ->
102.8. WBC increased to 36.8. BP was low last night started on Levophed, now weaned off. Admission bcx's x 2 Streptococcus species. CXR low volume. Pt reports rhinorrhea and cough since spring 2023. Cough is overall getting better. Sputum is
phlegm. Also has chronic intermittent diarrhea, again overall improving. No POWELL/sorethroat. No chest pain/SOB. No N/V. No urine sxs. No joint pain. Last dental cleaning was 1 month ago. Last colonoscopy 8 yrs ago + diverticulosis. No recent travel.
She is around her 3 young grandchildren frequently. No dogs/cats. She is unsure about her post-splenectomy vaccination status.
Past History
Additional Past Medical History:
Diabetes mellitus
Hypertension
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
Non-Hodgkin's lymphoma dx 2006, under observation until 2021 s/p Rituxan until 03/2024 -> then Jaypirca
Left humerus fracture ORIF
Allergy History:
ciprofloxacin [From Cipro] Allergy (Verified 10/26/23 20:19)
Rash
ciprofloxacin HCl [From Cipro] Allergy (Verified 10/26/23 20:19)
Rash
Medications Reviewed: Yes
Current Antibiotics:
Vancomycin
Cefepime
Social History
Tobacco: Non-Smoker
Alcohol: None
Personal:
Living: With Family
Employment: Retired
Family History
Family History: Not Pertinent
Review of Systems
Review of Systems
General: Fever, Chills and Change in Appetite
HEENT: Sinus Problems; Negative Lymphadenopathy, Stiff Neck, Headache or Pharyngitis
Cardiovascular: Negative Chest Pain, Dyspnea or Edema
Gasteroenterology: Negative Weight Loss, Nausea, Vomiting or Diarrhea
Genital / Urological: Negative Dysuria or Flank Pain
Endocrine: Weakness
Musculoskeletal: Negative Joint Pain, Joint Swelling or Arthralgias
Skin / Hair / Nails: Negative Rash
Neurological: Negative Dizziness
All systems: All other systems were reviewed and were negative
Vital Signs
Temp Pulse Resp BP Pulse Ox
98.9 F 90 22 98/55 95
05/10/24 07:43 05/10/24 09:00 05/10/24 09:00 05/10/24 09:00 05/10/24 09:00
Selected Entries
05/09/24
15:38
Temp 102.8 F H
Physical Exam
Physical Exam
Constitutional: No Acute Distress and Comfortable
Head: Normocephalic and Other (No frontal or maxillary sinus tenderness)
Eyes: No Conjunctival Hemorrhage and Sclera Anicteric
Pharynx: Benign
Cardiovascular: Regular Rate and S1/S2
Pulmonary: Coarse (Left base crackles)
Gastrointestinal: Soft, Non Tender, Non Distended and Normal Bowel Sounds
Genito-Urinary: Negative Suprapubic Tenderness or CVA Tenderness
Extremities: Negative Edema
Musculoskeletal: Negative Joint Swelling, Joint Effusion or Spinal Tenderness
Neurological: AO x 3; Negative Meningeal Signs
Lab / Diagnostic Study Results
05/10/24 05:13
05/10/24 05:13
Abs Immat Gran (auto) 1.8 10^3/uL (0-0.05) H 05/10/24 05:13
Absolute Neuts (auto) 32.0 10^3/uL (1.4-6.5) H 05/10/24 05:13
Absolute Lymphs (auto) 1.0 10^3/uL (1.2-3.4) L 05/10/24 05:13
Absolute Monos (auto) 1.9 10^3/uL (0.1-0.6) H 05/10/24 05:13
Absolute Basos (auto) 0.1 10^3/uL (0-0.2) 05/10/24 05:13
Immature Gran % 5.0 % (0-0.5) H 05/10/24 05:13
Neutrophils % 86.9 % (42.2-75.2) H 05/10/24 05:13
Lymphocytes % 2.7 % (20.5-51.1) L 05/10/24 05:13
Monocytes % 5.1 % (1.7-9.3) 05/10/24 05:13
Eosinophils % 0.0 % (0-6) 05/10/24 05:13
Basophils % 0.3 % (0-2) 05/10/24 05:13
Lactic Acid Cancelled 05/09/24 18:45
Ur Squamous Epith Cells 6-10 /LPF (Few) 05/09/24 13:33
Microbiology Results
Micro:
05/09/24 13:33 Urine Culture - Final
Urine
05/09/24 14:44 Blood Culture - Preliminary
Blood/Venous Positive culture in progress
Gram Stain - Preliminary
05/09/24 13:25 Blood Culture - Preliminary
Blood/Venous Positive culture in progress
Gram Stain - Preliminary
05/09/24 14:44 Blood Culture - Pending
Blood/Venous
05/09/24 14:24 Influenza Types A & B (JONATAN) - Final
Nasal Swab Negative for Influenza A & B, NAAT
Negative results must be combined with clinical observations
and patient history.
Nucleic Acid Amplification test (NAAT)performed on the
[employer] platform.
05/09/24 CXR: Low lung volumes with mild bibasilar opacities, likely atelectasis with pneumonia not excluded. No pleural effusions.
Assessment / Plan
# Streptococcus species bacteremia x 2 sets
# Severe sepsis with fever, leukocytosis (worse), hypotension
# NHL recent rituxan, last 03/2024, now on Jaypirca
- Unclear source of bacteremia at this time.
-Await speciation of strep.
-Repeat CXR 2V in am.
-Check TTE.
-Follow repeat bcx's
-Narrow Vanco/cefepime to ceftriaxone.
# hx splenectomy
- reviewed outside records. last PCV 20 was 2023.
- Will need ACWY and B meningococcal vaccinations, outpatient.
#Conditions prior to admission
Diabetes mellitus
Hypertension
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
Non-Hodgkin's lymphoma dx 2006, under observation until 2021 s/p Rituxan until 03/2024 -> then Jaypirca
Left humerus fracture ORIF
[2024-05-10] MEDS: ROCEPHIN 2000 MG IV (14:05)
[2024-05-10] MEDS: FLUSH (NSS) 1 FLUSH IV (14:08)
--- NOTE | 2024-05-10 14:17 | VATNOTE ---
05/10 Patient started on levophed over night- primary RN stated team is attempting to taper off the pressure. will reassess.
--- NOTE | 2024-05-10 15:58 | PTCARENOTE ---
IVF off and Levophed weaned off approx 1145- BP monitored ranging 90s-100s/40s-80s maps 50s-80s occasionally lower- remains asymptomatic (no confusion/lethargy/ dizziness/ diaphoresis etc...) relayed to Dr. Rocha- thierno to keep Levophed off. Urine
and blood cx sent as ordered. Occasional prod cough but unable to obtain specimen- cup at bedside and educated on. AAOx3, LC RA 94%, NSR 80-90s on tele. Appetite good, insulin coverage increased and closer to her normal regimen. Ambulates to
bathroom with assistance.
[2024-05-10 16:37] LABS: Glucose - Point of Care 159 mg/dl (70-99)
[2024-05-10] MEDS: NOVOLOG FLEXPEN 8 UNITS SC (16:39)
--- NOTE | 2024-05-10 16:40 | CM ---
Room air. Febrile today. Receiving IV Abx. Levophed gtt weaned off.
Met with patient (AKA 'Jasmin') and Warner;
the patient resides with her in a 2 story house.
The patient has been independent in ADLs and ambulation.
The patient has no DME, prior VN or SNF.
PCP - Warner Oliveros
Pharmacy - [facility]
No CM d/c needs identified.
Plan home.
[2024-05-10] MEDS: LOVENOX 40 MG SC (16:52)
[2024-05-10] MEDS: TYLENOL 650 MG PO (17:35)
--- NOTE | 2024-05-10 17:38 | PTCARENOTE ---
pt req. temp check - 101.1- Tylenol given
[2024-05-10] MEDS: LANTUS 0.15 UNITS SC (20:15)
[2024-05-10 20:25] LABS: Glucose - Point of Care 174 mg/dl (70-99)
[2024-05-11] VITALS (23 sets, daily range): BP systolic 103–133; BP diastolic 50–84; BMI 29.5
--- NOTE | 2024-05-11 05:01 | DOWNTIME ---
There was a [employer] Account Manager Downtime on 05/11/2024 from 0100 to 05/11/2024 at 0350. Downtime documentation of patient's care, including medication administrations, has been reconciled in the electronic record per guidelines. Refer to the
patient's paper chart under the miscellaneous tab to see printed paper medication records and downtime forms.
[2024-05-11 05:04] LABS: ALT (SGPT) 41 U/L (0-35); AST (SGOT) 39 U/L (14-36); Albumin 2.8 g/dl (3.5-5.0); Alkaline Phosphatase 77 U/L (38-126); Blood Urea Nitrogen 22 mg/dl (7-17); Calcium 8.7 mg/dl (8.4-10.2); Carbon Dioxide 20 mmol/L (22-30); Chloride 111 mmol/L (98-107); Estimated Creatinine Clearance 52 ml/min; Glucose 115 mg/dl (70-99); Potassium 3.7 mmol/L (3.5-5.1); Sodium 143 mmol/L (135-145); Total Bilirubin 0.3 mg/dl (0.2-1.3); Total Protein 4.9 g/dl (6.3-8.2); eGFR 59.86
--- NOTE | 2024-05-11 05:09 | PTCARENOTE ---
No acute events overnight. T max 99.9.
[2024-05-11 05:29] LABS: Hematocrit 29.6 % (37.0-47.0); Mean Corp Hgb Conc. 33.8 g/dL (33.0-37.0); Mean Corpuscular Hgb 30.8 pg (27.0-31.0); Mean Corpuscular Volume 91.1 fL (81.0-99.0); Mean Platelet Volume 12.1 fL (7.4-10.4); Platelet Count 192 10^3/uL (130-400); Red Blood Cell Count 3.25 10^6/uL (4.20-5.40); Red Cell Dist. Width 15.5 % (11.5-14.5); White Blood Cell Count 25.7 10^3/uL (4.8-10.8)
--- NOTE | 2024-05-11 06:34 | W.PN.HOSP.TC ---
Today's Communication/Plan
-
c/w IV Rocephin
Await repeat blood culture
Will ask cardiology for GWEN
Assessment / Plan
Assessment / Plan
Physical exam
GEN: No acute distress, conversant, pleasant
HEENT: anicteric, extraocular movements intact, clear oropharynx without exudates
CV: normal S1/S2, no murmur, rub or gallop
RESP: clear to auscultation bilaterally
GI: soft, non-distended, not tender to palpation, normal active bowel sounds, no hepatosplenomegaly
EXT: warm, well perfused, no edema bilaterally
NEURO: AAOx3, non-focal
Psych: calm
#Sepsis POA, Temp 102.8 F, HR 102, WBC 10.9 left shift
Septic shock , off Levophed gtt
Source possible PNA although no hypoxia or significant cough(has chronic cough)
She is immunocompromise patient with history splenectomy, lymphoma and on antineoplastic therapy
-Hx pneumonia left lower lobe October 2023
-COVID/FLU-negative
-Repeat Chest x ray 05/11 no worsening pulmonary disease.
-UA many bacteria, trace leukocytes
- IV Rocephin ( 2gm)
- f/w pulmonary and ID recommendations, appreciate help
# Streptococcal Bacteremia
Source: possible pulmonary
TTE is negative for vegetations
d/w Dr Desai, will ask cardiology for GWEN
#Acute transaminitis likely reactive
AST 66, ALT 64, alk phos 89
coming down
No abdominal pain or nausea
#Non-Hodgkin's lymphoma/ Small cell B-cell lymphoma
followed by [facility] (Dr. Inocente Tee)
-On Jaypirca 200 mg in a.m. holding for now
#IDDM
High BS
increase pre-meal and Lantus dose
Accu-Cheks with SSI, check HgbA1c was 9.14 Oct 2023, now 6.9
-Home regimen: NovoLog FlexPen 10 units with meals, Lantus 35 units SQ every afternoon
#Essential HTN
- Holding lisinopril due to low BP
# DVT ppx: Lovenox
Total time spent to see the patient, examine the patient, review data and lab results, discuss treatment plan with patient, her , nursing staff around 55 minutes
Anticipated Discharge: > 48 hours
Subjective/Interval History
-
Date of Service: May 11, 2024
Objective Data
-
Labs:
Laboratory Results
05/11/24
04:07
WBC 25.7 H
Hgb 10.0 L
Hct 29.6 L
Plt Count 192
Sodium 143
Potassium 3.7
Chloride 111 H
Carbon Dioxide 20 L
BUN 22 H
Creatinine 1.0
Glucose 115 H
Calcium 8.7
Total Bilirubin 0.3
AST 39 H
ALT 41 H
Alkaline Phosphatase 77
Vital Signs:
Vital Signs
Temp Pulse Resp BP Pulse Ox
99.9 F 76 19 118/56 92
05/11/24 04:11 05/11/24 04:20 05/11/24 04:20 05/11/24 04:20 05/11/24 04:20
I&O
05/09/24 05/10/24 05/11/24
06:59 06:59 06:59
Intake Total 950 / 950 2478 / 2478
Output Total 1350 / 1350 950 / 950
Balance -400 / -400 1528 / 1528
[2024-05-11 07:32] LABS: Glucose - Point of Care 130 mg/dl (70-99)
[2024-05-11 07:50] LABS: Absolute Neutrophils -Man Diff 22.3 10^3/uL (1.4-6.5); Atypical Lymphocytes 1 %; Band Neutrophils 33 % (0-3); Eosinophils 2 % (0-6); Lymphocytes 4 % (20-51); Monocytes 6 % (2-9); Segmented Neutrophils 54 % (42-75)
[2024-05-11 07:51] LABS: Normal RBC Morphology No; Platelets Checked Yes
[2024-05-11 07:52] LABS: Acanthocytes 1+; Anisocytosis Slight; Howell Jolly Bodies 1+; Hypochromasia 1+; Polychromasia 1+; Total Cells Counted 100
[2024-05-11] MEDS: LIPITOR 10 MG PO (08:49)
[2024-05-11] MEDS: NOVOLOG FLEXPEN-LOW RESISTANCE SC (08:50)
[2024-05-11] MEDS: NOVOLOG FLEXPEN 10 UNITS SC ×3 (08:53→17:12)
--- NOTE | 2024-05-11 10:16 | W.PN.PUL3 ---
Today's Communication / Plan
-
Continue antibiotics
Follow final culture identification
For GWEN
Assessment
-
74-year-old woman with past medical history noted, admitted to the hospital after developing sudden onset chills. Patient does report history of chronic cough. No significant hemoptysis or phlegm production. Chest x-ray with minimal bibasilar
abnormalities. We were consulted for possibility of pneumonia.
Septic shock: Possible pulmonary source.
Community-acquired pneumonia suspect
Chest x-ray: Describes bibasilar mild infiltrates atelectasis versus pneumonia
Abnormal UA: Bacteria without WBCs
Bacteremia with gram-positive cocci
Negative COVID
Immunosuppression-history of non-Hodgkin lymphoma
Leukocytosis
Metabolic ljjauhbt-yny-ixoaa gap-possibly post IV fluid
Normal lactic acid
Normal renal function mild transaminitis
Hyperglycemia
Conditions present prior admission:
Non-Hodgkin lymphoma/small cell biliary cell lymphoma-followed at [facility]-followed by [facility] (Dr. Inocente Tee)
On Jaypirca since 2023
Occasional chronic diarrhea-unclear etiology
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
Hypertension
Type 2 diabetes
Assessment and plan:
-
Overnight clinically improved, fever curve better.
Leukocytosis improved
Vasopressors discontinued as of this morning.
Lactic acid is normal
Renal function is normal
-
Source of infection to me is unclear-chest x-ray is not impressive.
Has bibasilar crackles on exam
Chest x-ray not that impressive-minimal bibasilar abnormalities atelectasis versus pneumonia
Based on CAT scan from October 2023 likely has left lower lobe scarring post pneumonia.
Follow fever curve.
Streptococcus species bacteremia
Urine culture pending
Negative Legionella and streptococcal antibody in the urine
Sputum culture-normal not producing
Infectious disease consulted: Transitioned to ceftriaxone.
-
Echocardiogram without vegetations or significant valvular abnormalities
Cardiology has been consulted for GWEN.
-
Hold immunosuppression for now- status post recent Rituxan and now on Jaypirca.
-
Patient does have history of chronic coughing. May need outpatient evaluation in the future.
Treated for pneumonia October 2023, I reviewed that CT chest and she had at that time and left lower lobe infiltrate with possible postinflammatory scarring.
There was no follow-up chest x-ray after that CAT scan. She states that she underwent a PET/CT in between at [facility]. She was told she had a left lower lobe scarring.
-
Glycemic control-continue subcu insulin.
Target 140-180
-
Will continue to follow along with you.
-
Subjective Data
-
Date of Service:
Date of Service: May 11, 2024
Chief Complaint: Pulmonary Follow Up (Septic shock/possible pneumonia)
Subjective:
No significant phlegm production
Remains on room air
Denies shortness of breath at rest
Vasopressors have been discontinued
Review of Systems
General: Fever (n)
Cardiopulmonary: Dyspnea (none at rest)
GI: Abdominal Pain (n) and Nausea (n)
Neuro: Headache (n)
Objective Data
Data Reviewed
Vital Signs / I&O / Oxygen:
Vital Signs
Temp Pulse Resp BP Pulse Ox
98.2 F 74 21 118/52 91
05/11/24 07:40 05/11/24 06:00 05/11/24 06:00 05/11/24 06:00 05/11/24 05:00
Intake and Output
05/10/24 05/11/24 05/12/24
06:59 06:59 06:59
Intake Total 950 / 950 2478 / 2478
Output Total 1350 / 1350 950 / 950 450 / 450
Balance -400 / -400 1528 / 1528 -450 / -450
SaO2 91
Physical Exam
General: Comfortable
HEENT: Normocephalic
Cardiovascular: S1-S2
Respiratory: Clear and Non-Labored Respirations
GI: Soft and Non Distended
Neurology: Awake, Alert, AO x 3 and No Motor Deficits
Skin: Warm
Labs/Micro/Reports
Lab Data
05/11/24 04:07
05/11/24 04:07
Microbiology
05/09/24 14:44 Blood/Venous Blood Culture - Preliminary
No Growth in 24 hours- Final report to follow
05/10/24 13:16 Urine Legionella Urinary Antigen - Final
Negative for Legionella pneumophila Serogroup 1 antigen.
A negative result does not rule out the possiblity of
Legionella infection due to other serogroups or species of
Legionella. Clinical correlation is recommended.
05/10/24 13:16 Urine Streptococcus pneumoniae Antigen (M - Final
Negative for Streptococcus pneumoniae antigen.
A negative result does not exclude infection with
Streptococcus pneumoniae. Clinical correlation is
recommended.
05/09/24 14:44 Blood/Venous Blood Culture - Preliminary
Streptococcus species
05/09/24 14:44 Blood/Venous Gram Stain - Preliminary
05/09/24 13:25 Blood/Venous Blood Culture - Preliminary
Streptococcus species
05/09/24 13:25 Blood/Venous Gram Stain - Preliminary
05/09/24 13:33 Urine Urine Culture - Final
05/09/24 14:24 Nasal Swab Influenza Types A & B (JONATAN) - Final
Negative for Influenza A & B, NAAT
Negative results must be combined with clinical observations
and patient history.
Nucleic Acid Amplification test (NAAT)performed on the
[employer] platform.
--- NOTE | 2024-05-11 10:49 | CON.CAR ---
Addendum entered and electronically signed by Samuel Lee MD 05/11/24 15:51:
I saw and examined the patient.
The SSIS DEVELOPER's note was reviewed and I agree with the note.
73-year-old woman with history of non-Hodgkin's lymphoma and splenectomy who presented with fever and chills/rigors and has positive blood cultures for strep. Exact source unclear. Echo showed normal left ventricular function. There is some
mitral annular calcification but no other significant valve abnormalities. No clear evidence of endocarditis based on that study. Patient is being followed by hospitalist and infectious disease. GWEN requested. Reviewed procedure with patient who
is agreeable.
-Continue with current antibiotic therapy as directed by ID
-Plan for GWEN Thursday
Original Note:
Consultation
Consultation Request
Date/Time Consultation Requested: 05/11/24 1020
Date/Time Consultation Performed: 05/11/24 1049
Requesting Provider: Dr. Rocha
Performing Provider: Arielle LEE for Dr. Lee
Reason for Consultation: evaluation for GWEN
Medical History
-
Chief Complaint: rigors, chills, fever
History of Present Illness:
73 y/o female (goes by 'Jasmin') with hx Non-Hodgkins lymphoma on Jaypirca (started 6 weeks ago), hx splenectomy, and DM2 on insulin who is here for evaluation of chills, rigors, and fever that started on 05/09/24. Prior to that she had been feeling
like normal. She has a chronic cough, which was unchanged. No SOB. She is seen to have one blood culture positive for strep species. She is being treated with antibiotics and feels much improved at this time. Fluids administered. She was temporarily
on Levophed, which is now off. We are consulted to evaluate for GWEN. She is in no distress at the time of my assessment.
Past Medical History
Past Medical History: Cancer and NIDDM (on insulin)
Past Surgical History: Other (splenectomy)
Social History
Tobacco: Non-Smoker
Alcohol: None
Personal:
Living: With Family
Family History
Family History: Other (mom had cardiac valve disease)
Allergies / Home Medications
Allergy/AdvReac Type Severity Reaction Status Date / Time
ciprofloxacin [From Cipro] Allergy Rash Verified 10/26/23 20:19
ciprofloxacin HCl Allergy Rash Verified 10/26/23 20:19
[From Cipro]
�Medication �Instructions �Recorded �Confirmed �Type
insulin aspart U-100 100 unit/mL 10 units SC AC Diabetes 06/25/21 05/09/24 History
(3 mL) subcutaneous pen (Novolog
FlexPen U-100 Insulin aspart)
lisinopril 5 mg tablet 5 mg PO DAILY Blood Pressure 10/27/23 05/09/24 History
atorvastatin 10 mg tablet (Lipitor) 10 mg PO DAILY High Cholesterol 05/09/24 05/09/24 History
famotidine 20 mg tablet (Pepcid) 20 mg PO BIDPRN PRN gerd 05/09/24 05/09/24 History
insulin glargine 100 unit/mL (3 35 unit SC QPM Diabetes 05/09/24 05/09/24 History
mL) subcutaneous pen (Lantus
Solostar U-100 Insulin)
pirtobrutinib 100 mg tablet 200 mg PO DAILY Cancer 05/09/24 05/09/24 History
(Jaypirca)
Review of Systems
-
History Source: Patient
All other systems: Negative unless noted
Constitutional: Fever, Chills and Other (rigors)
Physical Exam
Vital Signs
Temp Pulse Resp BP Pulse Ox
98.2 F 74 21 118/52 91
05/11/24 07:40 05/11/24 06:00 05/11/24 06:00 05/11/24 06:00 05/11/24 05:00
Lab Results
05/11/24 04:07
05/11/24 04:07
Physical Exam
General: Well Developed, Well Nourished and No Apparent Distress
HEENT: Normocephalic and Anicteric
Respiratory: Clear and Non Labored Respirations
Cardiac: Regular Rhythm
Musculoskeletal: No Edema
Skin: Warm and Dry
Neuro: AO x 3
Psych: Calm
Impression / Plan
-
Septic shock:
-this diagnosis is threat to life
-source unclear. One blood culture positive for strep species.
-on IV abx, fluids given, now off Levophed
-ID following, pulm following (question of PNA)
-TTE normal, can arrange for GWEN- timing TBD- she ate this AM. Discussed this procedure with patient and she is agreeable to proceed.
DM2:
-on insulin, statin, ACEI
Non-Hodgkin's Lymphoma:
-hx splenectomy
-on Jaypirca
Data Reviewed
-
EKG: Tracing Personally Visualized and interpreted (ST with NS ST/T abnormalities)
Radiology: Report Reviewed by me (No acute cardiopulmonary process.)
Medical Tests (Nuc Med, Echo etc): Report Reviewed by me (echo 05/10/25: Normal biventricular size and systolic function without regional wall motion abnormality. No significant valvular disease.)
Labs: Labs Reviewed by me
[2024-05-11] MEDS: NOVOLOG FLEXPEN-LOW RESISTANCE 1 UNITS SC ×2 (11:55→17:11)
[2024-05-11 12:09] LABS: Glucose - Point of Care 163 mg/dl (70-99)
--- NOTE | 2024-05-11 12:22 | W.PN.ID1 ---
Date of Service
Date of Service: May 11, 2024
Today's Communication
Agree with GWEN.
Continue cefriaxone.
Assessment / Plan
# Streptococcus species bacteremia x 2 sets
# Severe sepsis with fever, leukocytosis, hypotension - improved
# NHL recent Rituxan, last 03/2024, now on Jaypirca
- Unclear source of bacteremia at this time.
-Await speciation of strep.
- CXR neg
- TTE neg
- For GWEN.
-Follow repeat bcx's
-Continue ceftriaxone (d2).
-Trend wbc.
# hx splenectomy
- reviewed outside records. last PCV 20 was 2023.
- Will need ACWY and B meningococcal vaccinations, outpatient.
#Conditions prior to admission
Diabetes mellitus
Hypertension
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
Non-Hodgkin's lymphoma dx 2006, under observation until 2021 s/p Rituxan until 03/2024 -> then Jaypirca
Left humerus fracture ORIF
Chief Complaint
-: Bacteremia
Subjective / Review of Systems
Feeling improved today.
Vital Signs / Physical Exam
Vital Signs
Vital Signs
Temp Pulse Resp BP Pulse Ox
98.4 F 74 21 118/52 91
05/11/24 11:59 05/11/24 06:00 05/11/24 06:00 05/11/24 06:00 05/11/24 05:00
Physical Exam
Constitutional: No Acute Distress and Comfortable
Eyes: Sclera Anicteric
Cardiovascular: Regular Rate and S1/S2
Pulmonary: Clear
Gastrointestinal: Soft, Non Tender, Non Distended and Normal Bowel Sounds
Genito-Urinary: Negative CVA Tenderness
Extremities: Negative Edema
Neurological: AO x 3
Objective Data
Lab Data
Lab Results
05/11/24 04:07
05/11/24 04:07
Estimated Creat Clear 52 ml/min 05/11/24 04:07
Lactic Acid Cancelled 05/09/24 18:45
Total Bilirubin 0.3 mg/dl (0.2-1.3) 05/11/24 04:07
AST 39 U/L (14-36) H 05/11/24 04:07
ALT 41 U/L (0-35) H 05/11/24 04:07
Alkaline Phosphatase 77 U/L (38-126) 05/11/24 04:07
Most recent labs reviewed.
Micro Results:
05/10/24 13:16 Urine Culture - Final
Urine NO GROWTH
05/09/24 14:44 Blood Culture - Preliminary
Blood/Venous No Growth in 24 hours- Final report to follow
05/10/24 14:02 Blood Culture - Pending
Blood/Venous
05/10/24 13:16 Legionella Urinary Antigen - Final
Urine Negative for Legionella pneumophila Serogroup 1 antigen.
A negative result does not rule out the possiblity of
Legionella infection due to other serogroups or species of
Legionella. Clinical correlation is recommended.
Streptococcus pneumoniae Antigen (M - Final
Negative for Streptococcus pneumoniae antigen.
A negative result does not exclude infection with
Streptococcus pneumoniae. Clinical correlation is
recommended.
05/09/24 14:44 Blood Culture - Preliminary
Blood/Venous Streptococcus species
Gram Stain - Preliminary
05/09/24 13:25 Blood Culture - Preliminary
Blood/Venous Streptococcus species
Gram Stain - Preliminary
05/09/24 13:33 Urine Culture - Final
Urine
05/09/24 14:24 Influenza Types A & B (JONATAN) - Final
Nasal Swab Negative for Influenza A & B, NAAT
Negative results must be combined with clinical observations
and patient history.
Nucleic Acid Amplification test (NAAT)performed on the
[employer] NOW platform.
05/09/24 CXR: Low lung volumes with mild bibasilar opacities, likely atelectasis with pneumonia not excluded. No pleural effusions.
Care Review
Plan reviewed with: Physician (Dr. Rocha)
[2024-05-11] MEDS: STERILE WATER FOR INJECTION 10 ML IV (13:47)
[2024-05-11] MEDS: ROCEPHIN 2000 MG IV (13:47)
--- NOTE | 2024-05-11 15:29 | PTCARENOTE ---
Patient is afebrile this shift, IV antibiotics continue. Patient is denying pain, excellent appetite. Not requiring any oxygen. For GWEN on Thursday. Patient is able to verbalize plan of care.
--- NOTE | 2024-05-11 16:47 | CM ---
Patient with Hx history of non-Hodgkin's lymphoma and splenectomy. Plan for GWEN Thursday. Receiving IV Abx.
CM continuing to follow.
Plan home.
[2024-05-11 16:57] LABS: Glucose - Point of Care 186 mg/dl (70-99)
[2024-05-11] MEDS: LOVENOX 40 MG SC (17:20)
[2024-05-11] MEDS: LANTUS 0.15 UNITS SC (21:16)
[2024-05-11 21:26] LABS: Glucose - Point of Care 213 mg/dl (70-99)
--- NOTE | 2024-05-11 22:20 | PTCARENOTE ---
Caring for pt 7p-11p. aaox3, pleasant. Denies pain/sob. NSR on monitor. Remains RA, coarse at bases. OOB to BR x1 assist. Trace edema BLE. BS 213 tonight, lantus given. NO other issues at this time. Call paredes in reach. will monitor.
[2024-05-12] VITALS (12 sets, daily range): BP systolic 107–158; BP diastolic 48–87; BMI 29.0
[2024-05-12 04:14] LABS: % Basophils 0.6 % (0-2); % Eosinophils 3.4 % (0-6); % Immature Granulocytes 1.4 % (0-0.5); % Lymphocytes 15.6 % (20.5-51.1); % Monocytes 9.2 % (1.7-9.3); % Neutrophils 69.8 % (42.2-75.2); Absolute Basophils 0.1 10^3/uL (0-0.2); Absolute Eosinophils 0.4 10^3/uL (0-0.7); Absolute Immature Granulocytes 0.2 10^3/uL (0-0.05); Absolute Monocytes 1.2 10^3/uL (0.1-0.6); Absolute Neutrophils 8.7 10^3/uL (1.4-6.5); Hematocrit 34.6 % (37.0-47.0); Hemoglobin 11.1 g/dL (12.0-16.0); Mean Corp Hgb Conc. 32.1 g/dL (33.0-37.0); Mean Corpuscular Hgb 30.3 pg (27.0-31.0); Mean Corpuscular Volume 94.5 fL (81.0-99.0); Mean Platelet Volume 11.4 fL (7.4-10.4); Nucleated Red Blood Cells % 0.2 %; Platelet Count 219 10^3/uL (130-400); Red Blood Cell Count 3.66 10^6/uL (4.20-5.40); Red Cell Dist. Width 15.9 % (11.5-14.5); White Blood Cell Count 12.5 10^3/uL (4.8-10.8)
--- NOTE | 2024-05-12 04:44 | PTCARENOTE ---
Pt received from previous RN in bed. AAOx3, pleasant. Telemetry = SR. Full physical assessment documented (refer to worklist). OOB to BR w/min assist. Occasional harsh non productive cough. Afebrile, although linens/gown damp upon wakening,
assisted w/changing. #22 RFA and #20 RAC INTs patent. Call paredes within reach. Plan of care ongoing.
[2024-05-12 04:56] LABS: ALT (SGPT) 41 U/L (0-35); AST (SGOT) 38 U/L (14-36); Albumin 3.3 g/dl (3.5-5.0); Alkaline Phosphatase 84 U/L (38-126); Blood Urea Nitrogen 24 mg/dl (7-17); Calcium 9.2 mg/dl (8.4-10.2); Carbon Dioxide 21 mmol/L (22-30); Chloride 112 mmol/L (98-107); Estimated Creatinine Clearance 52 ml/min; Glucose 170 mg/dl (70-99); Potassium 4.2 mmol/L (3.5-5.1); Sodium 144 mmol/L (135-145); Total Bilirubin 0.2 mg/dl (0.2-1.3); Total Protein 5.5 g/dl (6.3-8.2); eGFR 59.86
--- NOTE | 2024-05-12 06:43 | W.PN.HOSP.TC ---
Today's Communication/Plan
-
c/w IV Rocephin
Encourage ambulation
ok for diet today, NPO tomorrow 05/13 for GWEN, appreciate cardiology help
Assessment / Plan
Assessment / Plan
Physical exam
GEN: No acute distress, conversant, pleasant
HEENT: anicteric, extraocular movements intact, clear oropharynx without exudates
CV: normal S1/S2, no murmur, rub or gallop
RESP: clear to auscultation bilaterally
GI: soft, non-distended, not tender to palpation, normal active bowel sounds, no hepatosplenomegaly
EXT: warm, well perfused, no edema bilaterally
NEURO: AAOx3, non-focal
Psych: calm
#Sepsis POA, Temp 102.8 F, HR 102, WBC 10.9 left shift
Septic shock , off Levophed gtt
Afebrile > 48 hours now
Source unclear but possible PNA although no hypoxia or significant cough(has chronic cough)
She is immunocompromise patient with history splenectomy, lymphoma and on antineoplastic therapy
-Hx pneumonia left lower lobe October 2023
-COVID/FLU-negative
- Repeat blood culture 05/10, no growth
-Repeat Chest x ray 05/11 no changes.
-UA many bacteria, trace leukocytes
- IV Rocephin ( 2gm)
- For GWEN 05/13
- f/w pulmonary and ID recommendations, appreciate help
# Streptococcal Bacteremia
Source: possible pulmonary
TTE is negative for vegetations
GWEN on 05/13, appreciate cardiology help
#Acute transaminitis likely reactive
AST 66, ALT 64, alk phos 89
coming down
No abdominal pain or nausea
#Non-Hodgkin's lymphoma/ Small cell B-cell lymphoma
followed by [facility] (Dr. Inocente Tee)
-On Jaypirca 200 mg in a.m. holding for now
#IDDM
High BS
increase pre-meal and Lantus dose
Accu-Cheks with SSI, check HgbA1c was 9.14 Oct 2023, now 6.9
-Home regimen: NovoLog FlexPen 10 units with meals, Lantus 35 units SQ every afternoon
#Essential HTN
- Holding lisinopril due to low BP
# DVT ppx: Lovenox
Total time spent to see the patient, examine the patient, review data and lab results, discuss treatment plan with patient, her , nursing staff around 55 minutes
Anticipated Discharge: > 48 hours
Subjective/Interval History
-
Date of Service: May 12, 2024
No chest pain
No sob
No fevers
Objective Data
-
Labs:
Laboratory Results
05/12/24
03:52
WBC 12.5 H
Hgb 11.1 L
Hct 34.6 L
Plt Count 219
Sodium 144
Potassium 4.2
Chloride 112 H
Carbon Dioxide 21 L
BUN 24 H
Creatinine 1.0
Glucose 170 H
Calcium 9.2
Total Bilirubin 0.2
AST 38 H
ALT 41 H
Alkaline Phosphatase 84
Vital Signs:
Vital Signs
Temp Pulse Resp BP Pulse Ox
98.3 F 57 15 132/70 96
05/12/24 03:59 05/12/24 06:00 05/12/24 06:00 05/12/24 06:00 05/12/24 06:00
I&O
05/10/24 05/11/24 05/12/24
06:59 06:59 06:59
Intake Total 950 / 950 2478 / 2478 400 / 400
Output Total 1350 / 1350 950 / 950 1925 / 1925
Balance -400 / -400 1528 / 1528 -1525 / -1525
--- NOTE | 2024-05-12 07:00 | PTCARENOTE ---
received patient at change of shift. Pt AAOX3, resting comfortably in bed. SR/SB on telemetry heart rate 50-60s. pulses palpable. pt on room air, sat 95%. lung sounds diminished in bases. active bowel sounds. voiding in bathroom, ambulated in room
without difficulty. see worklist for full nursing assessment and interventions. pt updated on plan of care.
[2024-05-12 07:25] LABS: Glucose - Point of Care 195 mg/dl (70-99)
[2024-05-12] MEDS: NOVOLOG FLEXPEN 10 UNITS SC ×3 (07:30→18:12)
[2024-05-12] MEDS: LIPITOR 10 MG PO (07:30)
[2024-05-12] MEDS: NOVOLOG FLEXPEN-LOW RESISTANCE 1 UNITS SC ×2 (07:31→11:43)
--- NOTE | 2024-05-12 08:48 | W.PN.PUL3 ---
Today's Communication / Plan
-
No new complaints, stable on RA
Plan for GWEN Thursday
Continue abx
No significant findings on lung imaging for PNA
Assessment
-
74-year-old woman with past medical history noted, admitted to the hospital after developing sudden onset chills. Patient does report history of chronic cough. No significant hemoptysis or phlegm production. Chest x-ray with minimal bibasilar
abnormalities. We were consulted for possibility of pneumonia.
Septic shock: Possible pulmonary source.
Community-acquired pneumonia suspect
Chest x-ray: Describes bibasilar mild infiltrates atelectasis versus pneumonia
Abnormal UA: Bacteria without WBCs
Bacteremia with gram-positive cocci
Negative COVID
Immunosuppression-history of non-Hodgkin lymphoma
Leukocytosis
Metabolic xatocotk-ljf-fxnxt gap-possibly post IV fluid
Normal lactic acid
Normal renal function mild transaminitis
Hyperglycemia
Conditions present prior admission:
Non-Hodgkin lymphoma/small cell biliary cell lymphoma-followed at [facility]-followed by [facility] (Dr. Inocente Tee)
On Jaypirca since 2023
Occasional chronic diarrhea-unclear etiology
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
Hypertension
Type 2 diabetes
Assessment and plan:
-
Overnight clinically improved, fever curve better.
Leukocytosis improved
Vasopressors discontinued as of this morning.
Lactic acid is normal
Renal function is normal
-
Source of infection to me is unclear-chest x-ray is not impressive.
Has bibasilar crackles on exam
Chest x-ray not that impressive-minimal bibasilar abnormalities atelectasis versus pneumonia
Based on CAT scan from October 2023 likely has left lower lobe scarring post pneumonia.
Follow fever curve.
Streptococcus species bacteremia
Urine culture pending
Negative Legionella and streptococcal antibody in the urine
Sputum culture-normal not producing
Infectious disease consulted: Transitioned to ceftriaxone.
-
Echocardiogram without vegetations or significant valvular abnormalities
Cardiology has been consulted for GWEN. Plan for tomorrow
-
Hold immunosuppression for now- status post recent Rituxan and now on Jaypirca.
-
Patient does have history of chronic coughing. May need outpatient evaluation in the future.
Treated for pneumonia October 2023, I reviewed that CT chest and she had at that time and left lower lobe infiltrate with possible postinflammatory scarring.
There was no follow-up chest x-ray after that CAT scan. She states that she underwent a PET/CT in between at [facility]. She was told she had a left lower lobe scarring.
-
Glycemic control-continue subcu insulin.
Target 140-180
-
Will continue to follow along with you.
-
Subjective Data
-
Date of Service:
Date of Service: May 12, 2024
Chief Complaint: Pulmonary Follow Up (Septic shock/possible pneumonia)
Subjective:
No acute events ON, remains stable on RA
No new complaints
Objective Data
Data Reviewed
Vital Signs / I&O / Oxygen:
Vital Signs
Temp Pulse Resp BP Pulse Ox
98.3 F 64 18 132/70 96
05/12/24 03:59 05/12/24 08:00 05/12/24 08:00 05/12/24 06:00 05/12/24 06:00
Intake and Output
05/11/24 05/12/24 05/13/24
06:59 06:59 06:59
Intake Total 2478 / 2478 400 / 400
Output Total 950 / 950 1925 / 1925
Balance 1528 / 1528 -1525 / -1525
SaO2 96
Physical Exam
General: Comfortable and Good Appetite
HEENT: Normocephalic, Anicteric and Moist Mucous Membranes
Cardiovascular: S1-S2 and Regular Rhythm
Respiratory: Clear and Non-Labored Respirations
GI: Soft, Non Distended and Non Tender
Neurology: Awake, Alert, AO x 3 and No Motor Deficits
Skin: Warm, Dry and Good Color
Labs/Micro/Reports
Lab Data
05/12/24 03:52
05/12/24 03:52
Microbiology
05/09/24 14:44 Blood/Venous Blood Culture - Preliminary
No Growth in 48 hours- Final report to follow
05/10/24 14:02 Blood/Venous Blood Culture - Preliminary
No Growth in 24 hours- Final report to follow
05/09/24 14:44 Blood/Venous Blood Culture - Preliminary
Streptococcus species
05/09/24 14:44 Blood/Venous Gram Stain - Preliminary
05/09/24 13:25 Blood/Venous Blood Culture - Preliminary
Streptococcus species
05/09/24 13:25 Blood/Venous Gram Stain - Preliminary
05/10/24 13:16 Urine Urine Culture - Final
NO GROWTH
05/10/24 13:16 Urine Legionella Urinary Antigen - Final
Negative for Legionella pneumophila Serogroup 1 antigen.
A negative result does not rule out the possiblity of
Legionella infection due to other serogroups or species of
Legionella. Clinical correlation is recommended.
05/10/24 13:16 Urine Streptococcus pneumoniae Antigen (M - Final
Negative for Streptococcus pneumoniae antigen.
A negative result does not exclude infection with
Streptococcus pneumoniae. Clinical correlation is
recommended.
05/09/24 13:33 Urine Urine Culture - Final
05/09/24 14:24 Nasal Swab Influenza Types A & B (JONATAN) - Final
Negative for Influenza A & B, NAAT
Negative results must be combined with clinical observations
and patient history.
Nucleic Acid Amplification test (NAAT)performed on the
[employer] platform.
[2024-05-12 11:43] LABS: Glucose - Point of Care 188 mg/dl (70-99)
[2024-05-12] MEDS: ROCEPHIN 2000 MG IV (13:49)
[2024-05-12] MEDS: STERILE WATER FOR INJECTION 20 ML IV (13:49)
[2024-05-12] MEDS: LOVENOX 40 MG SC (18:11)
[2024-05-12] MEDS: NOVOLOG FLEXPEN-LOW RESISTANCE 2 UNITS SC (18:12)
[2024-05-12 18:14] LABS: Glucose - Point of Care 201 mg/dl (70-99)
[2024-05-12] MEDS: LANTUS 0.15 UNITS SC (21:27)
[2024-05-12 21:37] LABS: Glucose - Point of Care 158 mg/dl (70-99)
[2024-05-13] VITALS (8 sets, daily range): BP systolic 116–138; BP diastolic 47–72; BMI 28.6
--- NOTE | 2024-05-13 01:22 | PTCARENOTE ---
Caring for patient 11p-7a. aaox3, pleasant. Denies pain. NSR/SB on monitor. Remains on RA. ECHO tomorrow. VSS. NO other issues, will monitor.
[2024-05-13 05:37] LABS: % Basophils 1.2 % (0-2); % Eosinophils 5.1 % (0-6); % Lymphocytes 14.1 % (20.5-51.1); % Neutrophils 63.6 % (42.2-75.2); Absolute Basophils 0.1 10^3/uL (0-0.2); Absolute Eosinophils 0.5 10^3/uL (0-0.7); Absolute Immature Granulocytes 0.5 10^3/uL (0-0.05); Absolute Lymphocytes 1.3 10^3/uL (1.2-3.4); Absolute Neutrophils 5.8 10^3/uL (1.4-6.5); Hematocrit 34.2 % (37.0-47.0); Hemoglobin 11.2 g/dL (12.0-16.0); Mean Corp Hgb Conc. 32.7 g/dL (33.0-37.0); Mean Corpuscular Hgb 30.7 pg (27.0-31.0); Mean Corpuscular Volume 93.7 fL (81.0-99.0); Mean Platelet Volume 11.7 fL (7.4-10.4); Nucleated Red Blood Cells % 0 %; Platelet Count 227 10^3/uL (130-400); Red Blood Cell Count 3.65 10^6/uL (4.20-5.40); Red Cell Dist. Width 15.5 % (11.5-14.5)
[2024-05-13 05:59] LABS: ALT (SGPT) 43 U/L (0-35); AST (SGOT) 43 U/L (14-36); Albumin 3.4 g/dl (3.5-5.0); Alkaline Phosphatase 80 U/L (38-126); Blood Urea Nitrogen 29 mg/dl (7-17); Calcium 9.3 mg/dl (8.4-10.2); Carbon Dioxide 26 mmol/L (22-30); Chloride 107 mmol/L (98-107); Estimated Creatinine Clearance 52 ml/min; Glucose 185 mg/dl (70-99); Potassium 4.5 mmol/L (3.5-5.1); Sodium 143 mmol/L (135-145); Total Bilirubin 0.2 mg/dl (0.2-1.3); Total Protein 5.5 g/dl (6.3-8.2); eGFR 59.86
--- NOTE | 2024-05-13 06:40 | W.PN.HOSP.TC ---
Addendum entered and electronically signed by Megan Rocha MD 05/13/24 14:03:
Addendum
Post GWEN,pt feels better and would like to go home
ok for diet
Vital signs are stable
d/w ID doctorhilda on Amoxicillin
Total discharge time spent to see the patient, examine the patient, review data and lab results, discuss discharge plan with the patient, ID doctor, nursing staff around 65 minutes
Original Note:
Today's Communication/Plan
-
NPO for GWEN
Assessment / Plan
Assessment / Plan
Physical exam
GEN: No acute distress, conversant, pleasant
HEENT: anicteric, extraocular movements intact, clear oropharynx without exudates
CV: normal S1/S2, no murmur, rub or gallop
RESP: clear to auscultation bilaterally
GI: soft, non-distended, not tender to palpation, normal active bowel sounds, no hepatosplenomegaly
EXT: warm, well perfused, no edema bilaterally
NEURO: AAOx3, non-focal
Psych: calm
#Sepsis POA, Temp 102.8 F, HR 102, WBC 10.9 left shift
Septic shock , off Levophed gtt
Afebrile > 48 hours now
Source unclear but possible PNA although no hypoxia or significant cough(has chronic cough)
She is immunocompromise patient with history splenectomy, lymphoma and on antineoplastic therapy
-Hx pneumonia left lower lobe October 2023
-COVID/FLU-negative
- Repeat blood culture 05/10, no growth
-Repeat Chest x ray 05/11 no changes.
-UA many bacteria, trace leukocytes
- IV Rocephin ( 2gm)
- For GWEN 05/13
- f/w pulmonary and ID recommendations, appreciate help
# Streptococcal Bacteremia
Source: possible pulmonary
TTE is negative for vegetations
GWEN on 05/13, appreciate cardiology help
#Acute transaminitis likely reactive
AST 66, ALT 64, alk phos 89
coming down
No abdominal pain or nausea
#Non-Hodgkin's lymphoma/ Small cell B-cell lymphoma
followed by [facility] (Dr. Inocente Tee)
-On Jaypirca 200 mg in a.m. holding for now
#IDDM
High BS
increased pre-meal and Lantus dose
Accu-Cheks with SSI, check HgbA1c was 9.14 Oct 2023, now 6.9
-Home regimen: NovoLog FlexPen 10 units with meals, Lantus 35 units SQ every afternoon
#Essential HTN
- Holding lisinopril due to low BP
# DVT ppx: Lovenox
Total time spent to see the patient, examine the patient, review data and lab results, discuss treatment plan with patient, her , nursing staff around 55 minutes
Anticipated Discharge: 24 - 48 hours
Subjective/Interval History
-
Date of Service: May 13, 2024
No sob
No chest pain
No fevers
Objective Data
-
Labs:
Laboratory Results
05/13/24
05:10
WBC 9.0
Hgb 11.2 L
Hct 34.2 L
Plt Count 227
Sodium 143
Potassium 4.5
Chloride 107
Carbon Dioxide 26
BUN 29 H
Creatinine 1.0
Glucose 185 H
Calcium 9.3
Total Bilirubin 0.2
AST 43 H
ALT 43 H
Alkaline Phosphatase 80
Vital Signs:
Vital Signs
Temp Pulse Resp BP Pulse Ox
98.3 F 60 23 116/47 90
05/13/24 03:41 05/13/24 04:00 05/13/24 04:00 05/13/24 04:00 05/13/24 04:00
I&O
05/11/24 05/12/24 05/13/24
06:59 06:59 06:59
Intake Total 2478 / 2478 400 / 400 680 / 680
Output Total 950 / 950 1925 / 1925 600 / 600
Balance 1528 / 1528 -1525 / -1525 80 / 80
[2024-05-13] MEDS: NOVOLOG FLEXPEN SC ×2 (08:00→13:43)
[2024-05-13] MEDS: NOVOLOG FLEXPEN-LOW RESISTANCE SC ×2 (08:00→13:43)
[2024-05-13] MEDS: LIPITOR PO (08:00)
[2024-05-13 08:25] LABS: Glucose - Point of Care 186 mg/dl (70-99)
--- NOTE | 2024-05-13 11:26 | PTCARENOTE ---
NPO since MN, Voided learning consultant. Accuc check 184 this am- declined corrective SS coverage. Spouse at bedside. mill labor supervisor staff transported pt via wheelchair to procedure room.
--- NOTE | 2024-05-13 11:28 | W.PN.PUL3 ---
Today's Communication / Plan
-
GWEN today
Continue antibiotics
No additional pulmonary recommendation
Sign off
For her chronic cough information will left in the chart for follow-up
Assessment
-
74-year-old woman with past medical history noted, admitted to the hospital after developing sudden onset chills. Patient does report history of chronic cough. No significant hemoptysis or phlegm production. Chest x-ray with minimal bibasilar
abnormalities. We were consulted for possibility of pneumonia.
Septic shock: Possible pulmonary source.
Community-acquired pneumonia suspect
Chest x-ray: Describes bibasilar mild infiltrates atelectasis versus pneumonia
Abnormal UA: Bacteria without WBCs
Bacteremia with gram-positive cocci
Negative COVID
Immunosuppression-history of non-Hodgkin lymphoma
Leukocytosis
Metabolic yqqzstzc-hgv-gudbb gap-possibly post IV fluid
Normal lactic acid
Normal renal function mild transaminitis
Hyperglycemia
Conditions present prior admission:
Non-Hodgkin lymphoma/small cell biliary cell lymphoma-followed at [facility]-followed by [facility] (Dr. Inocente Tee)
On Jaypirca since 2023
Occasional chronic diarrhea-unclear etiology
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
Hypertension
Type 2 diabetes
Assessment and plan:
-
Overnight clinically improved, fever curve better. Afebrile, leukocytosis resolved
Shock has resolved
Lactic acid is normal
Renal function is normal
-
Source of infection to me is unclear
Chest x-ray 05/11/2024: Without acute abnormalities
Has bibasilar crackles on exam
Based on CAT scan from October 2023 likely has left lower lobe scarring post pneumonia.
Follow fever curve.
Streptococcus pneumonia bacteremia.
Urine culture negative
For GWEN today
Echocardiogram without vegetations or significant valvular abnormalities
Negative Legionella and streptococcal antibody in the urine
Sputum culture-normal not producing.
Continue ceftriaxone per infectious disease.
-
Hold immunosuppression for now- status post recent Rituxan and now on Jaypirca.
-
Patient does have history of chronic coughing. Recommend outpatient evaluation in the future.
Treated for pneumonia October 2023, I reviewed that CT chest and she had at that time and left lower lobe infiltrate with possible postinflammatory scarring.
There was no follow-up chest x-ray after that CAT scan. She states that she underwent a PET/CT in between at [facility]. She was told she had a left lower lobe scarring.
-
Glycemic control-continue subcu insulin.
Target 140-180
-
No additional recommendation from the pulmonary perspective.
If source of bacteremia continues to be elusive, may need to consider CT chest abdomen pelvis. I will defer to infectious disease whether this is necessary or not.
No additional recommendations
Sign off
-
Subjective Data
-
Date of Service:
Date of Service: May 13, 2024
Chief Complaint: Pulmonary Follow Up (Septic shock/possible pneumonia)
Subjective:
Patient denies any pulmonary complaints
No hemoptysis
No significantly short of breath
Review of Systems
General: Fever (n)
Cardiopulmonary: Dyspnea (none)
GI: Abdominal Pain (n) and Nausea (n)
Neuro: Headache (n)
Objective Data
Data Reviewed
Vital Signs / I&O / Oxygen:
Vital Signs
Temp Pulse Resp BP Pulse Ox
98.3 F 70 23 136/66 92
05/13/24 11:25 05/13/24 10:00 05/13/24 10:00 05/13/24 10:00 05/13/24 10:00
Intake and Output
05/12/24 05/13/24 05/14/24
06:59 06:59 06:59
Intake Total 400 / 400 680 / 680
Output Total 1925 / 1925 600 / 600
Balance -1525 / -1525 80 / 80
SaO2 92
Physical Exam
General: Comfortable and Good Appetite
HEENT: Normocephalic, Anicteric and Moist Mucous Membranes
Cardiovascular: S1-S2 and Regular Rhythm
Respiratory: Clear and Non-Labored Respirations
GI: Soft, Non Distended and Non Tender
Neurology: Awake, Alert, AO x 3 and No Motor Deficits
Skin: Warm, Dry and Good Color
Labs/Micro/Reports
Lab Data
05/13/24 05:10
05/13/24 05:10
Microbiology
05/09/24 14:44 Blood/Venous Blood Culture - Final
Streptococcus pneumoniae
05/09/24 14:44 Blood/Venous Gram Stain - Final
05/09/24 13:25 Blood/Venous Blood Culture - Final
Streptococcus pneumoniae
05/09/24 13:25 Blood/Venous Gram Stain - Final
05/09/24 14:44 Blood/Venous Blood Culture - Preliminary
No Growth in 72 hours- Final report to follow
05/10/24 14:02 Blood/Venous Blood Culture - Preliminary
No Growth in 48 hours- Final report to follow
05/10/24 13:16 Urine Urine Culture - Final
NO GROWTH
05/10/24 13:16 Urine Legionella Urinary Antigen - Final
Negative for Legionella pneumophila Serogroup 1 antigen.
A negative result does not rule out the possiblity of
Legionella infection due to other serogroups or species of
Legionella. Clinical correlation is recommended.
05/10/24 13:16 Urine Streptococcus pneumoniae Antigen (M - Final
Negative for Streptococcus pneumoniae antigen.
A negative result does not exclude infection with
Streptococcus pneumoniae. Clinical correlation is
recommended.
05/09/24 13:33 Urine Urine Culture - Final
--- NOTE | 2024-05-13 12:43 | W.PN.ID1 ---
Date of Service
Date of Service: May 13, 2024
Today's Communication
Transition ceftriaxone (d4) to amoxicillin 1g po q8 through 05/23/24.
DC home.
Assessment / Plan
# Invasive Streptococcus pneumoniae bacteremia x 2 sets
# s/p Severe sepsis with fever, leukocytosis, hypotension
# NHL recent Rituxan, last 03/2024, now on Jaypirca
- Unclear source of bacteremia
- CXR neg
- TTE neg
- Appeciate cardiology. GWEN neg vegetation
-Repeat bcx's negative
-Transition ceftriaxone (d4) to amoxicillin 1g po q8 through 05/23/24.
-Trend wbc.
# hx splenectomy
- reviewed outside records. last PCV 20 was 09/2023.
- Will need ACWY and B meningococcal vaccinations, outpatient.
- Vaccines information provided for patient.
#Conditions prior to admission
Diabetes mellitus
Hypertension
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
Non-Hodgkin's lymphoma dx 2006, under observation until 2021 s/p Rituxan until 03/2024 -> then Jaypirca
Left humerus fracture ORIF
Chief Complaint
-: Bacteremia
Subjective / Review of Systems
Feels well.
Vital Signs / Physical Exam
Vital Signs
Vital Signs
Temp Pulse Resp BP Pulse Ox
98.3 F 70 23 136/66 92
05/13/24 11:25 05/13/24 10:00 05/13/24 10:00 05/13/24 10:00 05/13/24 10:00
Physical Exam
Constitutional: No Acute Distress and Comfortable
Eyes: No Conjunctival Hemorrhage and Sclera Anicteric
Cardiovascular: Regular Rate and S1/S2
Pulmonary: Clear
Gastrointestinal: Soft, Non Tender, Non Distended and Normal Bowel Sounds
Extremities: Negative Edema
Neurological: Awake and AO x 3
Objective Data
Lab Data
Lab Results
05/13/24 05:10
05/13/24 05:10
Estimated Creat Clear 52 ml/min 05/13/24 05:10
Lactic Acid Cancelled 05/09/24 18:45
Total Bilirubin 0.2 mg/dl (0.2-1.3) 05/13/24 05:10
AST 43 U/L (14-36) H 05/13/24 05:10
ALT 43 U/L (0-35) H 05/13/24 05:10
Alkaline Phosphatase 80 U/L (38-126) 05/13/24 05:10
Most recent labs reviewed.
Micro Results:
05/09/24 14:44 Blood Culture - Final
Blood/Venous Streptococcus pneumoniae
Gram Stain - Final
05/09/24 13:25 Blood Culture - Final
Blood/Venous Streptococcus pneumoniae
Gram Stain - Final
05/09/24 14:44 Blood Culture - Preliminary
Blood/Venous No Growth in 72 hours- Final report to follow
05/10/24 14:02 Blood Culture - Preliminary
Blood/Venous No Growth in 48 hours- Final report to follow
05/10/24 13:16 Urine Culture - Final
Urine NO GROWTH
05/10/24 13:16 Legionella Urinary Antigen - Final
Urine Negative for Legionella pneumophila Serogroup 1 antigen.
A negative result does not rule out the possiblity of
Legionella infection due to other serogroups or species of
Legionella. Clinical correlation is recommended.
Streptococcus pneumoniae Antigen (M - Final
Negative for Streptococcus pneumoniae antigen.
A negative result does not exclude infection with
Streptococcus pneumoniae. Clinical correlation is
recommended.
05/09/24 13:33 Urine Culture - Final
Urine
05/09/24 14:24 Influenza Types A & B (JONATAN) - Final
Nasal Swab Negative for Influenza A & B, NAAT
Negative results must be combined with clinical observations
and patient history.
Nucleic Acid Amplification test (NAAT)performed on the
[employer] platform.
05/09/24 CXR: Low lung volumes with mild bibasilar opacities, likely atelectasis with pneumonia not excluded. No pleural effusions.
Care Review
Plan reviewed with: Physician (Dr. Rocha)
[2024-05-13 13:22] LABS: Glucose - Point of Care 151 mg/dl (70-99)
--- NOTE | 2024-05-13 13:39 | PTCARENOTE ---
Returned from GWEN, AAOx3 VSS see documentation. Declined po diet - wants to go home and eat. DC instructions reviewed with teach back.
--- NOTE | 2024-05-13 13:53 | W.DCSUMMARY ---
Discharge Summary
Discharge Data
Date of Admission: 05/09/24
Date of Discharge: 05/13/24
-
Pending Results: No
Hospital Course
73 years old female presented with fever and rigors. Patient reported that she started to feel unwell for less then 1 day duration. It was sudden onset. Patient was admitted to the hospital. Primary source was unclear. Scan of the chest showed
possible airspace consolidation within the left lower lobe. Patient did not have cough or hypoxia. She had history of chronic cough. Patient developed hypotension and was started on norepinephrine infusion. Her vital signs stabilized. Blood
culture came positive with Streptococcus pneumonia bacteremia. Patient was evaluated by infectious disease doctor. Transthoracic echocardiogram did not show valvular vegetation. Transesophageal echocardiogram did not show valvular agitation.
Echocardiogram showed LVEF 60 to 65% with no significant valvular disease. Repeat blood culture showed no growth. ID doctor felt possibility of bacteremia could be sinus infection. Patient started to feel better. No recurrent fever. She was
followed by pulmonary doctor also and recommended outpatient follow-up. Patient remained hemodynamically stable and was discharged home in a stable condition on oral antibiotics.
Discharge Plan
-
Patient Disposition: Home (Routine Discharge)
Discharge Diagnosis/Procedures: Streptococcus pneumoniae bacteremia
You were seen by pulmonary doctor, car wash manager and ID doctor. Your repeat blood culture came back no growth. You had transthoracic and transesophageal echocardiogram that did not show valvular vegetation/evidence of endocarditis.
Follow-up with your oncologist regarding further treatment.
Condition: Good
Diet: As tolerated
Referrals:
Warren Miller MD [Active] - in two to four weeks
Warner Oliveros MD [Family Provider] - in one to two weeks
Prescriptions:
New
amoxicillin 500 mg capsule
1,000 mg PO TID Qty: 30 0RF
Continued
insulin aspart U-100 [Novolog FlexPen U-100 Insulin] 300 UNITS/3 ML insulin pen
10 units SC AC
lisinopril 5 mg tablet
5 mg PO DAILY
atorvastatin [Lipitor] 10 mg Tablet
10 mg PO DAILY
famotidine [Pepcid] 20 mg Tablet
20 mg PO BIDPRN PRN (Reason: gerd)
insulin glargine [Lantus Solostar U-100 Insulin] 100 unit/mL (3 mL) Insulin Pen
35 unit SC QPM
Jaypirca 100 mg Tablet
200 mg PO DAILY
Discharge Orders:
Discharge Patient (As Directed); Ordered 05/13/24
Ordered By: Megan Rocha
Discharge Date and Time
Print Language: DIVEHI
--- NOTE | 2024-05-13 15:49 | CM ---
Met with patient who was preparing for discharge.
The patient says she feels ready for discharge home today. IMM completed. Her will provide a ride home.
No CM d/c needs identified.
Plan home today.
== END 2024-05-13 13:58 | disposition home or self-care (01) | DRG 871 ==
LOC: IMU 18:58
PROVIDERS: Clinical Nurse Specialist Family Health; Registered Nurse; ADMITTING PHYSICIAN Internal Medicine; CONSULT PHYSICIAN Internal Medicine Cardiovascular Disease; CONSULT PHYSICIAN Internal Medicine Infectious Disease; EMERGENCY PHYSICIAN Emergency Medicine; FAMILY PHYSICIAN Family Medicine; OTHER PHYSICIAN Internal Medicine Critical Care Medicine
DX: A40.3 Sepsis due to Streptococcus pneumoniae (principal); J18.9 Pneumonia, unspecified organism; R65.20 Severe sepsis without septic shock; D84.9 Immunodeficiency, unspecified; C83.00 Small cell B-cell lymphoma, unspecified site; E87.20 Acidosis, unspecified; E11.65 Type 2 diabetes mellitus with hyperglycemia; Z11.52 Encounter for screening for COVID-19
CPT/HCPCS: 71046; 80053; 81003; 81015; 82962; 83036; 83605; 85025; 87040; 87077; 87086; 87186; 87205; 87449; 87502; 87811; 87899; 93005; 93306; 93312; 93320; 93325; 96365; 96366; 96375; 99285